=== PATIENT | male | born 1930 | race Caucasian/White ===

== ENCOUNTER 2016-06-08 14:47 | Inpatient (IN) | payer MEDICARE, OTHER ==
[~2016-06-08] VITALS: Ht 180.3 cm; Wt 82.1 kg
[~2016-06-08 14:47] MED LIST: CHOL400T41 PO; COU5 PO; IND10 PO; OMEP20TA86 PO; SYN75 PO; ZOC10 PO; [UNRECOGNIZED DRUG - CODE] PO
[2016-06-08 16:30] VITALS: BP 160/88; PULSE 126; RESP 21; O2SAT 90
[2016-06-08] MEDS ORDERED: VENL75TA3 PO (16:58)
[2016-06-08] MEDS ORDERED: NYST1000 PO (16:58)
[2016-06-08] MEDS ORDERED: BISA10SU61 RC (16:58)
[2016-06-08] MEDS ORDERED: ACID1TAB2 PO (16:58)
[2016-06-08] MEDS ORDERED: FLUT9.9S NS (16:58)
[2016-06-08] MEDS ORDERED: CHOL200025 PO (16:58)
[2016-06-08] MEDS ORDERED: OMEP20CA11 PO (16:58)
[2016-06-08] MEDS ORDERED: RIVA20TA PO (16:58)
[2016-06-08] MEDS ORDERED: SIMV20TA4 PO (16:58)
[2016-06-08] MEDS ORDERED: MULT1CAP33 PO (16:58)
[2016-06-08] MEDS ORDERED: GABA-500 PO (16:58)
[2016-06-08] MEDS ORDERED: ALBU0.63 INHALATION ×2 (16:58→17:59)
[2016-06-08] MEDS ORDERED: DONE5TAB30 PO (16:58)
[2016-06-08] MEDS ORDERED: TIOT18CA3 INHALATION (16:58)
[2016-06-08] MEDS ORDERED: NA P133E23 RC (16:58)
[2016-06-08] MEDS ORDERED: LEVO75TA PO (16:58)
[2016-06-08] MEDS ORDERED: BISA-67 PO (16:58)
[2016-06-08] MEDS ORDERED: MAGN400O4 PO (16:58)
[2016-06-08] MEDS ORDERED: CETI10CA PO (17:10)
[2016-06-08] MEDS ORDERED: KEN25CR EXT (17:10)
[2016-06-08] MEDS ORDERED: ACET325T51 PO (17:10)
[2016-06-08] MEDS ORDERED: PRIM50TA PO (17:10)
[2016-06-08] MEDS ORDERED: TETR15DR99 BOTH_EYES (17:10)
[2016-06-08] MEDS ORDERED: 0.9% Sodium Chloride 1,000 ML IV SCH (17:39)
[2016-06-08] MEDS ORDERED: Alum-Mag Hydrox-Simeth 30 mL Suspension PO PRN (17:40)
[2016-06-08] MEDS ORDERED: Polyethylene Glycol (PEG) 17 Gm Powder PO PRN (17:40)
[2016-06-08] MEDS ORDERED: Ondansetron 2 mg/mL 2 mL Inj IVPUSH PRN (17:40)
[2016-06-08] MEDS ORDERED: Sodium Biphos-Phos 133 mL Enema RECTAL PRN (17:55)
[2016-06-08] MEDS ORDERED: Magnesium Hydroxide 355 mL Oral Suspension PO PRN (17:55)
[2016-06-08] MEDS ORDERED: Nystatin 100,000 Unit/mL 59 mL Suspension PO PRN (17:55)
--- NOTE | 2016-06-08 18:00 | PCM.HPMED ---
Subjective Date of Service Jun 08, 2016 Primary Provider: Admitting Physician: Sasha Horton MD Primary Care Physician: Angel Stock MD Attending Physician: Sasha Horton MD Chief Complaint: left hip pain History of Present Illness: Daughter Reports he was hospitalized in March with severe aspiration pneumonia and Fever, he required ICU care and she said they had to give him up to 15 liters of oxygen. Per notes he also had mario esophagitis. Since then he has been at [facility]. It is reported that he was sitting on the bed when he dropped his pen and when he reached to slat pickler he fell landing on his left hip. The staff found him lying on the floor on left side complaining of left hip pain. He was seen at [facility] emergency department and transferred here for admission. Upon arrival he was noted to be febrile and is requiring 6 L of oxygen. Daughter notes he has still continued to have a chronic cough at the rehabilitation facility, he was treated with doxycycline on May 16, and apparently also Tamiflu. Daughter thinks his influenza test was positive but rehab notes say he was treated in spite of a negative test. Review of Systems: He has dementia and is not able to provide a review of symptoms. His daughter Is not aware of any recent new symptoms. Notes from the rehabilitation facility note recent weight loss, decreased appetite, drip, cough, and weakness. He did receive a course of doxycycline starting May 16 for his cough. Apparently he was tested for influenza was negative but they treated him with Tamiflu in spite of this. Allergies Coded Allergies: Sulfa (Sulfonamide Antibiotics) (Verified Allergy, Severe, 06/08/16) No Known Allergies (Verified Allergy, Unknown, 06/08/16) Home Medications Paperwork from the rehabilitation facility was with the admit nurse who was entering them in our computer. Please see med reconciliation for the current list. Daughter states he had been on propranolol in the past for his tremor but is not sure if he is still on this. PMH According to the daughter and his 2012 admission here has medical history includes: Chronic atrial fibrillation on chronic anticoagulation which was changed from warfarin to xeralto 2 months ago Essential tremor Obstructive sleep apnea for which he had been using CPAP but they are not using at rehabilitation COPD/emphysema Coronary artery disease with angioplasty in 2007 showing moderate disease of the LAD. Echo in 2011 showed ejection fraction of the 55-60% Dementia Luz's esophagitis Prostate cancer Hyperlipidemia Restless leg syndrome Hypothyroidism Additional diagnoses noted on paperwork from rehabilitation facility: depression Dysphagia (colt says he was changed back to a regular diet with thin liquids 3 weeks ago) polyneuropathy weakness gait abnormality Surgical History Left femoral fracture with a bone graft when he was hit by a log in 1957 History of pneumothorax Prostatectomy Testicular surgery Cataract surgery Family History Not obtainable Social History Hx Alcohol Use: Yes (used to drink but none since March) Hx Substance Use: No Hx Tobacco Use: Yes (CHEWING TOBACCO) Smoking Status: Former Smoker (in 1984) [facility]ement[facility] Additional Information , has 3 daughters and 2 of them are here today, but other in [place]. POL states CPR but he currently does not have capacity to make decision regarding this and both his daughter's decided today he should be DNAR. One is his daughter Jahaira who is his HCPOA Exam Vital Signs Vital Sign - Last Date Time Temp Pulse Resp B/P Pulse Ox O2 Delivery O2 Flow Rate FiO2 06/08/16 17:24 Supplement Oxygen 06/08/16 16:30 38.4 126 21 160/88 90 2.00 Exam General: Alert, no acute distress. Not oriented to place and doesn't recognize this as the hospital. Doesn't know the year or the president. When I ask him about CPR he makes comments that are totally unrelated to the topic. HEENT: Unremarkable Neck no JVD, carotids 2+ Heart: Irregularly irregular with a rate of approximately 120 Lungs: Somewhat decreased breath sounds left base Abdomen: Soft, non-tender Extremities: No pedal edema. Pedal pulses 2+. Does not move left leg because he does remember that it is "injured". Able to raise the right leg off the bed Assessment & Plan # left femoral neck fracture - will need surgery when effect of Xarelto is felt to have worn off and when fever and respiratory status is stable # fever, most likely is due to recurrent aspiration pneumonia -Obtain chest x-ray - Obtain blood cultures and urinalysis - Begin Unasyn # hypoxia - Treat probable pneumonia as noted above - Oxygen therapy as needed - Resume CPAP at night which he had been on in the recent past - Continue Spiriva - As needed albuterol nebulizer # Dysphagia - go back on dysphagia diet with thickened liquids - speech therapy evaluation # Chronic atrial fibrillation, now with some increased ventricular response - Most likely due to fever - We will give IV fluid and if does not improve consider medication for rate control - Since Xarelto is being held for hip surgery will be a full dose of therapy, dose prior to surgery once determined when that will be # INR of 1.9 at [facility] ED, will repeat, as noted above is now on Xarelto instead of warfarin and it is being held. Pain Evaluation: Adequate Pain Control VTE Prophylaxis: Other (has been on Xarelto which will be held for surgery so we will change to full dose Lovenox) VTE Mechanical Devices: Intermittant Pneumatic CD Resuscitation Status: DNR/DNI:Do Not Resuscitate/Intubate Sasha Horton MD Jun 08, 2016 18:00
--- NOTE | 2016-06-08 18:07 | NUR ---
Direct admit Patient report was called by [facility] nurse. Patient was transported to [facility] via BLS. Patient transferred to bed by 3 person transfer. Patient is non weight bearing. Patient is alert and confused. Patient family in room at time of admit. Patient was on room air at time of arrival but was 66% on RA at arrival. Patient has been placed on 6L supplemental oxygen via oxy-mask with saturations at 87-90% and sometimes dropping into to low 80's. Patient was unable to be oriented to room, but family was oriented. Patient denied pain.
--- NOTE | 2016-06-08 18:15 | PCM.CONORT ---
Subjective Date of Surgery: Jun 08, 2016 Surgeon Admitting Provider:Sasha Horton MD Attending Provider:Sasha Horton MD Primary Care Physician:Angel Stock MD Orthopedic surgeon: Moshe Jett M.D. 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 He has a significant past medical history which includes atrial fibrillation with the Xarelto anticoagulation, dementia, recent pneumonia and left femoral shaft fracture in the 1949s treated surgically and with prolonged body casting. The patient has a pre-existing 3 inch left shorter than right limb length discrepancy and mild valgus malunion deformity following his left femoral fracture, but was otherwise a community ambulator who did not normally use walking aids other than a left shoe lift. The patient was hospitalized at [facility] in March for pneumonia. He has been recovering and rehabilitating from that illness and generalized deconditioning at an [facility], [facility]. The patient is still unsteady with regards to mobilization and has been using a walker. The patient was getting out of his bed this morning and reaching for a dropped pen, 06/08/2016, when he unfortunately lost his balance and fell heavily onto his left side. The patient experienced pain in his left hip and groin region as a result of the fall and was unable to weight-bear through his left lower extremity. The patient was brought to [facility] emergency room where he was assessed and x-rays of his left hip and femur were obtained. Those x-rays confirmed a minimally displaced left femoral neck fracture and an old, healed left distal femoral shaft malunion. The patient was transferred to [facility] for definitive care as it was explained that there were no available beds at [facility]. The patient was found to have a significantly low oxygen saturation and had an elevated temperature upon arrival to [facility]. The patient's INR, which was obtained at [facility], was reported as 2.49. The patient is not reported to be taking Coumadin according to half-way facility records. The patient has been admitted to the Hospitalist Service and an orthopedic surgical consultation has been requested for assessment and management of the patient's left hip femoral neck fracture. Allergy Allergies: Coded Allergies: Sulfa (Sulfonamide Antibiotics) (Verified Allergy, Severe, 06/08/16) No Known Allergies (Verified Allergy, Unknown, 06/08/16) Medications Blood Thinners: Coumadin Last Dose Blood Thinner: Jun 07, 2016 Hypertension Medication: No Home Meds Incl Beta Blockers: No Acetaminophen (Acetaminophen) 325 Mg Tablet 1-2 EACH PO Q4H PRN PRN For Pain ( Reported) Acidophilus/Pectin, [place] (Acidophilus Caplet) 1 Each Tablet 1 EACH PO BID PRN PRN when on antibiotics (Reported) Albuterol Neb Soln (Albuterol Neb Soln) 0.63 Mg/3 Ml Vial.neb 0.63 MG INHALATION QID PRN PRN For Cough (Reported) Bisacodyl (Dulcolax) 5 Mg Tablet.dr 5-10 MG PO DAILY PRN PRN For Constipation ( Reported) PER BOWEL PROTOCOL Bisacodyl (Dulcolax Rectal) 10 Mg Supp.rect 10 MG RC DAILY PRN PRN For Constipation (Reported) PER BOWEL PROTOCOL Cetirizine HCl (Zyrtec) 10 Mg Capsule 10 MG PO DAILY (Reported) Cholecalciferol (Vitamin D3) (Vitamin D3) 2,000 Unit Tablet 2,000 UNIT PO DAILY (Reported) Donepezil (Donepezil) 5 Mg Tablet 5 MG PO DAILY (Reported) Fluticasone Propionate (Flonase Allergy Relief) 50 Mcg/Actuation Ada.susp 2 SPRAYS NS DAILY (Reported) Gabapentin (Gabapentin) 100 Mg Capsule 100 MG PO TID (Reported) Levothyroxine Sodium (Levo-T) 75 Mcg Tablet 75 MG PO DAILY (Reported) Magnesium Hydroxide (Milk of Magnesia) 400 Mg/5 Ml Oral.susp 30 ML PO DAILY PRN PRN For Constipation (Reported) PER BOWEL PROTOCOL Multivitamin (Multivitamins) 1 Each Capsule 1 EACH PO DAILY (Reported) Na Phos,M-B/Na Phos,Di-Ba (Fleet Enema) 133 Ml Enema 133 ML RC DAILY PRN PRN For Constipation (Reported) PER BOWEL PROTOCOL Nystatin (Nystatin) 100,000 Unit/1 Ml Oral.susp 5 ML PO TID PRN PRN oral thrush (Reported) Omeprazole (Omeprazole) 20 Mg Capsule.dr 20 MG PO DAILY (Reported) Primidone (Primidone) 50 Mg Tablet 75 MG PO DAILY (Reported) Last Taken: UNKNOWN on Unknown Date & Time Rivaroxaban (Xarelto) 20 Mg Tablet 20 MG PO DAILY (Reported) Simvastatin (Simvastatin) 20 Mg Tablet 20 MG PO DAILY (Reported) Tetrahyd/Zn/Peg 400/Hyprom/Gly (Visine Totality Eye Drops) 15 Ml Drops 2 DROP BOTH_EYES QID PRN PRN For Eye Irritation (Reported) Tiotropium [employer] (Spiriva) 18 Mcg Cap.w.dev 1 CAPSULE INHALATION DAILY ( Reported) Triamcinolone Acet (Triamcinolone Acetonide Cream) 1 Applic/0.25 Gm Cr 1 APPLIC EXT TID PRN PRN rash (Reported) apply to back prn Venlafaxine (Venlafaxine) 75 Mg Tablet 75 MG PO DAILY (Reported) Discontinued Medications CHOLECALCIFEROL-Expunged Drug, Do Not Renew! (VITAMIN D-Expunged Drug, Do Not Renew!) 400 Unit Tablet 2,000 UNIT PO DAILY (Reported) Levothyroxine-Expunged Drug, Do Not Renew! (Synthroid-Expunged Drug, Do Not Renew!) 75 Mcg Tablet 0.075 MG PO DAILY (Reported) 0.075 MG = 75 MCG Omeprazole-Expunged Drug, Do Not Renew! (Omeprazole-Expunged Drug, Do Not Renew! ) 20 Mg Tablet.dr 20 MG PO DAILY (Reported) Primidone-Expunged Drug, Do Not Renew! (Mysoline-Expunged Drug, Do Not Renew!) 50 Mg Tab 50 MG PO TID (Reported) Propranolol-Expunged Drug, Do Not Renew! (Propranolol-Expunged Drug, Do Not Renew!) 10 Mg Tab 10 MG PO TID (Reported) Simvastatin-Expunged Drug, Choose New Med! (Simvastatin-Expunged Drug, Choose New Med!) 10 Mg Tablet 20 MG PO HS (Reported) Warfarin Inactive Drug Do Not Use (Coumadin Inactive Drug Do Not Use) 5 Mg Tablet 7.5 MG PO DAILY (Reported) History History of ENT Problems?: Yes HEENT History: Positive for:: Dysphagia Hearing Problem Denies:: Abnormal Airway Cataracts Difficult Intubation Glaucoma Sinus Problem Denture Type: Full- Upper Full- Lower Hx of Heart Problems?: Yes Cardiovascular History: Positive for:: Hypertension Irregular Heartbeat (a-fib) Denies:: Cardiac Surgery Chest Pain Congestive Heart Failure Edema Heart Murmur Pacemaker Thrombophlebitis Hx of Respiratory Problem?: Yes Respiratory History: Positive for:: COPD Dyspnea Emphysema Pneumonia (intensive care hospitalization at [facility] March 2016) Denies:: Asthma Chest Surgery Hemoptysis Tuberculosis Hx Neurologic Problems?: Yes Neurological History: Positive for:: Dementia Headaches Denies:: Alzheimer's Disease CVA Dizziness Parkinson's Disease Seizures Hx of GI Problems?: Yes Gastrointestinal History: Positive for:: Gastroesphageal Reflux Heartburn Rectal Bleeding Denies:: Diverticulitis Gastrointestinal Bleeding Hepatitis Hiatal Hernia Hx of Problems?: Yes Genitourinary History: Denies:: HX of Hemodialysis Kidney Stones Urinary Tract Infection HX of Peritoneal Dialysis: No Male Hx: Positive for:: Prostate Problems (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) Denies:: Scrotal Mass Testicular Surgery Hx Musculoskeletal Problems?: Yes Musculoskeletal History: Positive for:: Back Injury Musculoskeletal Trauma (femoral shaft fracture open reduction and casting) Denies:: Joint Replacement Hx of Psycho/Social Problems?: Yes Psycho Social History: Positive for:: Anxiety Denies:: Bipolar Disorder Hx Depression Suicide Attempt Hx Surgeries?: Yes (left femur open reduction , laparoscopic cholecystectomy) Hx Any Other Health Problems?: Yes Other History: Positive for:: Cancer Hospitalization Thyroid Disease Denies:: Endocrine Disease History Blood Transfusions: Positive for:: Accept Blood Products? Denies:: Blood Transfuse Reaction Blood Transfusions Hx Diabetes: No Hx Alcohol Use: Yes (used to drink)Hx Substance Use: NoHave You Smoked inLast 12 mo: No Objective Exam Objective Imaging X-ray AP pelvis and left hip lateral [facility] 06/08/2016: Minimally displaced, mid cervical femoral neck fracture. Mild to moderate pre-existing degenerative changes. Postsurgical changes and clips consistent with prostate surgery. Generalized osteopenia. X-ray left femur multiple views [facility] 06/08/2016: Healed distal one third femoral shaft fracture with mild valgus deformity malunion. Generalized osteopenia. Vital Signs & I/O Vital Sign- Last 8 Hours Date Time Temp Pulse Resp B/P Pulse Ox O2 Delivery O2 Flow Rate FiO2 06/08/16 17:24 Supplement Oxygen 06/08/16 16:30 38.4 126 21 160/88 90 Nasal Cannula 2.00 Review of Systems: Constitutional: Negative, except as otherwise mentioned in the history above. Ophthalmologic: Negative, except as otherwise mentioned in the history above. Cardiovascular: Negative, except as otherwise mentioned in the history above. Respiratory: Negative, except as otherwise mentioned in the history above. Gastrointestinal: Negative, except as otherwise mentioned in the history above. Genitourinary: Negative, except as otherwise mentioned in the history above. Musculoskeletal: Negative, except as otherwise mentioned in the history above. Neurological: Negative, except as otherwise mentioned in the history above. Psychiatric: Negative, except as otherwise mentioned in the history above. Hematologic/Lymphatic: Negative, except as otherwise mentioned in the history above. Allergic/Immunologic: Negative, except as otherwise mentioned in the history above. H&P Surgical Exam Exam General: Alert, Cooperative, No Acute Distress (The patient is requiring supplemental oxygen and is on a face mask re-breather) Musculoskeletal: Left lower extremity: 3 inch left shorter than right limb length discrepancy but no significant external rotation deformity. There is a well-healed longitudinal anterolateral mid to distal thigh incision scar which is well- healed nontender. Skin about the hip is intact without abrasion, ecchymosis or significant swelling. There is tenderness in the left groin region to gentle attempt at left hip motion. There is no tenderness to palpation of the left knee or obvious effusion. There is bossing of the knee consistent with degenerative changes. The lower limb is otherwise remarkable for generalized musculature atrophy. Neurovascular exam: Superficial peroneal, deep peroneal and saphenous sensation grossly intact to light touch. Ankle dorsiflexion, extensor hallucis and ankle plantarflexion 3/5 motor power. Dorsalis pedis pulse is palpable. H&P Preop Plan Impression Left hip minimally displaced femoral neck fracture in elderly, demented patient with multiple chronic and acute medical comorbidities currently anticoagulated on Xarelto following ground-level fall at half-way facility 06/08/2016. Problems: Risks & Benefits * We have reviewed the risks and benefits as well as the alternatives to surgery. All questions were answered to the patient's satisfaction and a counseling note to that effect. The patient has provided informed consent. * I have counseled the patient regarding the deleterious effects that smoking during the perioperative period can have upon wound healing, infection rates, and the overall rate of complications. Plan I have reviewed the diagnosis, x-ray findings, natural history and treatment options with the patient, his daughters who act as his power of real estate associate attorney and the patient's attending physician Sasha Horton M.D. I have recommended that we proceed with plans for left fracture in situ cannulated pinning as soon as the patient's medical condition can be optimized and his anticoagulated status to be suitably reversed. I appreciate and the rest of the Hospitalist team's assistance in this regard. We reviewed the potential risks and benefits of surgery including, but not limited to, discussions involving infection, bleeding, neurovascular injury, stiffness, weakness, hypersensitivity and reflex sympathetic dystrophy, fracture malunion, fracture nonunion, femoral head avascular necrosis, hardware pain, hardware failure and loss of reduction, posttraumatic arthritis and need for further reconstructive surgery including conversion to total hip arthroplasty. We also discussed general medical complications including, but not limited to, stroke, myocardial infarction, cardiorespiratory arrest, generalized infection or sepsis, deep vein thrombosis and pulmonary embolism and exacerbation of pre-existing medical comorbidities. copies to: Angel Stock MD; Moshe Jett MD, Michael G.E MD Jun 08, 2016 18:15
[2016-06-08 18:21] LABS: BASOPHILS % (AUTO) 0.1 % (0-3); EOSINOPHILS % (AUTO) 0 % (0-5); MONOCYTES % (AUTO) 3.5 % (4-12); Mean Corpuscular Hemoglobin 31.1 pg (27.0-35.0); Mean Corpuscular Volume 92.6 fL (81-100); NEUTROPHILS % (AUTO) 93.7 % (40-74); Platelet Count 352 bil/L (150-400)
[2016-06-08 18:22] VITALS: PULSE 117
[2016-06-08] MEDS: HYDROcodone-APAP 5-325 mg Tablet PO PRN (18:31)
[2016-06-08 18:36] LABS: Magnesium 1.4 mg/dL (1.6-2.6)
[2016-06-08 18:41] LABS: INR 1.2 ratio
[2016-06-08] MEDS ORDERED: Tetrahydrozoline 0.05% 15 mL Ophthalmic Solution BOTH_EYES PRN (18:50)
--- NOTE | 2016-06-08 19:10 | DRSVH ---
PROCEDURE: X-RAY CHEST ONE VIEW, PORTABLE ([id number]) INDICATIONS: fever, history of aspiration pneumonia TECHNIQUE: One view of the chest was acquired. COMPARISON: [facility], , CHEST 1 VIEW, 04/07/2016, 15:12. FINDINGS: Surgical changes and devices: None. Lungs and pleura: Lungs are hyperinflated. No pneumothorax is seen. No pleural effusion is seen. No i ll-defined areas of scattered increased markings in the periphery of the left lung and possibly infer iorly into right lung. These could be small areas of recurrent pneumonia. Mediastinum: Mediastinal contours appear normal. Heart size is normal. Bones and chest wall: No suspicious bony lesions. Overlying soft tissues appear unremarkable. IMPRESSION: Compared to the chest x-ray in March of 2016 is been significant improvement in the appearance of the infiltrates. Currently there ill-defined patchy areas of density in the periphery of the left lung and possibly ri ght base suggestive of small infiltrates. Dictated by: Cuco Dietrich M.D. on 06/08/2016 at 19:06 Approved by: Cuco Dietrich M.D. on 06/08/2016 at 19:08
[2016-06-08 19:40] VITALS: BP 123/67; PULSE 85; RESP 19; O2SAT 94
[2016-06-08] MEDS ORDERED: Albuterol 2.5 mg/3 mL Inhalation Solution NEB PRN (20:00)
[2016-06-08] MEDS: Ampicillin-Sulbactam Inj 3,000 MG in 0.9% Sodium Chloride 100 ML IV SCH (21:35)
[2016-06-08] MEDS ORDERED: Magnesium Sulf 2 Gm/50mL Water 2 GM in IV Premix 1 EACH IV ONE (22:20)
[2016-06-08] MEDS: 0.9% Sodium Chloride 1,000 ML IV SCH (22:25)
[2016-06-08 23:35] VITALS: PULSE 91
[2016-06-09] VITALS (9 sets, daily range): BP systolic 101–121; BP diastolic 48–71; PULSE 71–101; RESP 18–20; O2SAT 92–99
--- NOTE | 2016-06-09 01:37 | NUR ---
Nurse Swallow Screen Charge nurse preformed swallow screen at beginning of shift. Charge nurse states patient was able to tolerate honey thick liquids, and pureed foods. Patient was given evening medications in applesauce without any coughing, choking, or signs of aspiration. Will continue to monitor, and continue Q1 hour checks.
[2016-06-09] MEDS: Ampicillin-Sulbactam Inj 3,000 MG in 0.9% Sodium Chloride 100 ML IV SCH ×4 (03:51→20:19)
[2016-06-09 04:01] LABS: APPEARANCE,URINE HAZY (CLEAR,HAZY); COLOR,URINE DARK YELLOW (YELLOW); OCCULT BLOOD,URINE NEGATIVE (NEGATIVE); UROBILINOGEN,URINE NORMAL (NORMAL)
[2016-06-09] MEDS ORDERED: Pantoprazole 20 mg ER24 Tablet PO SCH (06:00)
[2016-06-09] MEDS: 0.9% Sodium Chloride 1,000 ML IV SCH ×2 (08:25→17:03)
[2016-06-09 08:47] LABS: BASOPHILS % (AUTO) 0.1 % (0-3); EOSINOPHILS % (AUTO) 3.2 % (0-5); MONOCYTES % (AUTO) 5.1 % (4-12); Mean Corpuscular Hemoglobin 30.4 pg (27.0-35.0); NEUTROPHILS % (AUTO) 82.7 % (40-74); Platelet Count 301 bil/L (150-400)
[2016-06-09 08:56] LABS: Magnesium 2.2 mg/dL (1.6-2.6); Phosphorus 3.9 mg/dL (2.5-4.9)
--- NOTE | 2016-06-09 09:35 | PCM.PNORTH ---
Subjective Date of Service: Jun 09, 2016 Visit Information: Reason for Visit Left Femoral Neck Fracture Surgery/Surgery Date Post-Op Day # Date of Admission: Jun 08, 2016 at 15:59 Hospital Day # Subjective Found patient supine in bed and asleep and easily awakened. Patient complains of mild discomfort at the left hip. Discussed with patient that his condition at this point other than his hip would likely keep him from being taken to the OR today and that his hospitalist physician will work on his medical issues and advise orthopedics when patient is stable for the OR. Objective Exam Objective Orientation: Alert and pleasant and interactive. Received information of some mild dementia from nursing staff. Patient thinks he has been in this hospital for 5 years and describes things that do not seem to correlate with his current situation. Dressing: None Wound: None Compartments: Calf and thigh are soft and nontender Mobility/sensation: Toe wiggle and sensation are intact at left lower extremity distally JASVIR hose: None Soto: Presently working Gait: Strict nonweightbearing at this time. Vital Signs and I/O Vital Sign - Last Date Time Temp Pulse Resp B/P Pulse Ox O2 Delivery O2 Flow Rate FiO2 06/09/16 09:00 83 06/09/16 08:06 20 95 OxyMask 4.00 06/09/16 05:15 36.5 118/69 Intake and Output 06/08/16 06/08/16 06/09/16 Cumulative From/Thru 15:00 23:00 07:00 06/08/16 17:24 - 06/09/16 05:13 Intake Total 0 ml 960 ml 960 ml Output Total 365 ml 365 ml Balance 0 ml 595 ml 595 ml Intake Oral 0 ml 0 ml 0 ml IV Total 960 ml 960 ml Output Urine Total 365 ml 365 ml # Voids 1 1 Lab & Micro Results Laboratory Tests Test 06/08/16 18:00 06/09/16 03:49 06/09/16 05:59 White Blood Count 22.7th/mm3 (3.8-10.1) 14.2th/mm3 (3.8-10.1) Red Blood Count 4.31mil/mm3 (4.40-5.80) 3.88mil/mm3 (4.40-5.80) Hemoglobin 13.4g/dL (13.8-17.2) 11.8g/dL (13.8-17.2) Hematocrit 39.9% (41.0-50.0) 35.3% (41.0-50.0) Mean Corpuscular Volume 92.6fL (81-100) 91.0fL (81-100) Mean Corpuscular Hemoglobin 31.1pg (27.0-35.0) 30.4pg (27.0-35.0) Mean Corpuscular Hemoglobin Concent 33.6% (32.0-37.0) 33.4% (32.0-37.0) Red Cell Distribution Width 14.0% (12.3-15.4) 14.5% (12.3-15.4) Platelet Count 352bil/L (150-400) 301bil/L (150-400) Neutrophils (%) (Auto) 93.7% (40-74) 82.7% (40-74) Lymphocytes (%) (Auto) 2.3% (14-46) 8.5% (14-46) Monocytes (%) (Auto) 3.5% (4-12) 5.1% (4-12) Eosinophils (%) (Auto) 0% (0-5) 3.2% (0-5) Basophils (%) (Auto) 0.1% (0-3) 0.1% (0-3) Prothrombin Time 12.9sec (8.1-12.5) Prothromb Time International Ratio 1.20ratio Sodium Level 133mEq/L (134-144) 135mEq/L (134-144) Potassium Level 4.5mEq/L (3.5-5.2) 5.0mEq/L (3.5-5.2) Chloride Level 93mEq/L (97-108) 97mEq/L (97-108) Carbon Dioxide Level 25mmol/L (18-29) 26mmol/L (18-29) Blood Urea Nitrogen 14mg/dL (8-27) 15mg/dL (8-27) Creatinine 0.88mg/dL (0.76-1.27) 0.85mg/dL (0.76-1.27) Estimat Glomerular Filtration Rate 87mL/min (>59) 90mL/min (>59) Glucose Level 160mg/dL (60-99) 119mg/dL (60-99) Calcium Level 9.3mg/dL (8.5-10.1) 9.1mg/dL (8.5-10.1) Magnesium Level 1.4mg/dL (1.6-2.6) 2.2mg/dL (1.6-2.6) Total Bilirubin 0.5mg/dL (0.0-1.2) 0.3mg/dL (0.0-1.2) Aspartate Amino Transf (AST/SGOT) 20U/L (0-50) 24U/L (0-50) Alanine Aminotransferase (ALT/SGPT) 19U/L (0-44) 17U/L (0-44) Alkaline Phosphatase 120U/L (25-160) 103U/L (25-160) Total Protein 7.4g/dL (6.4-8.4) 6.5g/dL (6.4-8.4) Albumin 3.3g/dL (3.4-5.0) 2.8g/dL (3.4-5.0) Hold Khanna Top Tube Received (Received) Urine Color Dark yellow (YELLOW) Urine Appearance Hazy (CLEAR,HAZY) Urine pH 5.0 (5.0-8.0) Urine Specific Braxton 1.030 (1.003-1.035) Urine Protein Negativemg/dL (NEG,TRACE) Urine Glucose (UA) Negativemg/dL (NEGATIVE) Urine Ketones Negativemg/dL (NEGATIVE) Urine Occult Blood Negative (NEGATIVE) Urine Nitrite Negative (NEGATIVE) Urine Bilirubin Negative (NEGATIVE) Urine Urobilinogen Normalmg/dL (NORMAL) Urine Leukocyte Esterase Negative (NEGATIVE) Urine RBC 0-2/hpf (0-2) Urine WBC 0-5/hpf (0-5) Urine Epithelial Cells Occasional/hpf (NONE-MOD) Urine Crystals None seen (NONE SEEN) Urine Bacteria Few/hpf (NONE-FEW) Urine Hyaline Casts Occasional/lpf (NONE) Urine Granular Casts None seen (NONE SEEN) Urine Waxy Casts None seen (NONE SEEN) Urine Red Blood Cell Casts None seen (NONE SEEN) Urine White Blood Cell Casts None seen (NONE SEEN) Urine Mucus Present (None Seen) Urine Trichomonas None seen (NONE SEEN) Urine Yeast None (NONE SEEN) Urinalysis Comment None Urine Culture Reflexed Not indicated Phosphorus Level 3.9mg/dL (2.5-4.9) Microbiology 06/08/16 Blood Culture, Received Pending Result Diagram: 06/09/16 0559 06/09/16 0559 General Appearance: Alert, Cooperative Extremities: No Compartment Syndrom Noted, Thigh & Calf Soft/Nontender Postop Sensory Motor: Distal Motor Intact, Movement in Toes, Distal Sensation Intact Catheters: Urethral 2 Way Soto Assessment & Plan Impression Patient is a very pleasant 86-year-old male with a recent history of pneumonia who apparently is still having symptoms. He is apparently has some level of dementia but is very talkative and alert and pleasant and does respond well to questions and does follow commands. He has injured his left hip and does need surgical fixation of this injury which will be delayed secondary to overriding medical issues. Problems: Plan Postadmit day # 1 from a ground-level fall during which he sustained a left hip fracture. Patient has been consult by Dr. Moshe Jett and placement of left cannulated screw fixation has been suggested and is awaiting medical clearance. Weight bearing status: Strict nonweightbearing at this time. Mobility aid: Immobilization: Precautions: Please try to keep the left hip as immobile as possible and if patient is turned in use pillow between the legs to maintain neutral alignment at the left hip. Physical therapy: No physical therapy needed at this time. Pain control: Pain control per hospitalist service. DVT prophylaxis: DVT prophylaxis per hospitalist service. Soto: In place and working. Abduction wedge: Absent JASVIR hose: Absent Nursing communication: Nursing please try to maintain left hip in neutral position and if bed mobility is required please use pillow between the legs to maintain neutral position of hip and take care to move legs as a unit in line with the torso. Plan: Anticipate taking patient to the OR as soon as practical after medical clearance from hospitalist service. Orthopedics thanks hospitalist service for their help in the medical management of this patient. Discharge plan: Patient will likely be discharged to senior living facility postop day 3 after left hip surgery. This is assuming medical issues do not override and dictate an alternate plan. VTE Prophylaxis: Other (Lovenox 80 mg daily as ordered by hospitalist service.) Resuscitation Status: DNR/DNI:Do Not Resuscitate/Intubate Rafael KulkarniC Jun 09, 2016 09:15
[2016-06-09] MEDS: HYDROcodone-APAP 5-325 mg Tablet PO PRN (10:01)
[2016-06-09] MEDS: Venlafaxine XR 75 mg ER24 Capsule PO SCH (10:03)
[2016-06-09] MEDS: Tiotropium 18mcg/Cap 5 Capsule Inhaler Kit INHALATION SCH (10:07)
[2016-06-09] MEDS: Fluticasone 0.05% 15 Spray/2 Gm 16 Gm Nasal Spray NASAL SCH (10:07)
[2016-06-09 10:35] LABS: INR 1.18 ratio
[2016-06-09] MEDS ORDERED: GUAI600T86 PO (12:22)
--- NOTE | 2016-06-09 14:14 | NUR ---
Evaluation completed. Please go to "Notes" then click on "Assessments and Notes" (bottom left corner of screen). Then select appropriate discipline tab on top of screen. Rec a modified barium swallow study be completed JULIAN (Saturday is soonest possible).
--- NOTE | 2016-06-09 14:52 | NUR ---
Social Work- Initial Assessment Attempt Social Work attempted to contact GLENROY Casanova, to complete initial assessment. Left voicemail requesting return call. UDAY Renee
--- NOTE | 2016-06-09 16:44 | NUR ---
Pain / O2 No c/o pain unles pt is being moved to be placed on bedpan or roll to turn. Pain seems controlled at rest. For pain prevention 1Tab Vicodin seems to work well. Supplemental oxygen NC @ 3L 92%. Weaning pt slowly off of oxygen. Care continues
--- NOTE | 2016-06-09 17:29 | PCM.PNMED ---
Subjective Date of Service Jun 09, 2016 Subjective Patient is feeling better. However, he complains of pain in his left hip. He is breathing okay with an oxygen mask on. He has no other new complaints. Exam Vital Signs Vital Sign - Last Date Time Temp Pulse Resp B/P Pulse Ox O2 Delivery O2 Flow Rate FiO2 06/09/16 16:00 Supplement Oxygen 06/09/16 15:23 36.9 99 19 101/48 92 4.00 Intake and Output 06/08/16 06/08/16 06/09/16 Cumulative From/Thru 15:00 23:00 07:00 06/08/16 17:24 - 06/09/16 05:13 Intake Total 0 ml 960 ml 960 ml Output Total 365 ml 365 ml Balance 0 ml 595 ml 595 ml Intake Oral 0 ml 0 ml 0 ml IV Total 960 ml 960 ml Output Urine Total 365 ml 365 ml # Voids 1 1 Exam General: Patient is in no apparent distress on oxygen mask. HEENT: Head is atraumatic and normocephalic. Patient has normal male pattern baldness. Eyes: Pupils are equally round and reactive to light and accommodation. Extraocular muscles are intact. Sclera are white, anicteric. Subconjunctival mucosa is pink. Ears and nose are unremarkable. Oropharynx: There is no mucosal lesions, there is no thrush, there is no pharyngitis. Oral mucosa slightly dry. Neck: Is supple, there are no nodes, or masses or tenderness. Chest: There are coarse breath sounds and few scattered rales. Otherwise fairly clear. Heart: Rate, rhythm is regular. There is no murmur, rub or gallop. Abdomen: Good bowel sounds are present. Abdomen is soft, nontender, no organomegaly or masses were appreciated. Extremities: Are well perfused. The left lower extremities roughly 2-3 inches shorter than the right lower extremity. There is no edema, there is no cellulitis, no rash. Range of motion of left hip was not tested. Neurologic: There are no focal neurological deficits. Cranial nerves II through XII are intact. There are no sensory or motor deficits. Psychiatric: Patients mood is calm and he shows no sign of agitation. Genital: Deferred Rectal: Deferred Lab and Diagnostics Result Diagram: 06/09/16 0559 06/09/1659 Microbiology Blood cultures are pending X-Rays, CTs and MRIs PROCEDURE: X-RAY CHEST ONE VIEW, PORTABLE ([id number]) INDICATIONS: fever, history of aspiration pneumonia TECHNIQUE: One view of the chest was acquired. COMPARISON: [facility], , CHEST 1 VIEW, 04/07/2016, 15:12. FINDINGS: Surgical changes and devices: None. Lungs and pleura: Lungs are hyperinflated. No pneumothorax is seen. No pleural effusion is seen. No ill-defined areas of scattered increased markings in the periphery of the left lung and possibly inferiorly into right lung. These could be small areas of recurrent pneumonia. Mediastinum: Mediastinal contours appear normal. Heart size is normal. Bones and chest wall: No suspicious bony lesions. Overlying soft tissues appear unremarkable. IMPRESSION: Compared to the chest x-ray in March of 2016 is been significant improvement in the appearance of the infiltrates. Currently there ill-defined patchy areas of density in the periphery of the left lung and possibly right base suggestive of small infiltrates. Assessment & Plan According to Dr. Horton The patient's daughter reported that the patient was hospitalized in March with severe aspiration pneumonia and Fever, he required ICU care and she said they had to give him up to 15 liters of oxygen. Per notes he also had mario esophagitis. Since then he has been at [facility] group home facility. She was doing so well he was soon to graduate and go back to his assisted living facility. 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 The staff found him lying on the floor on left side complaining of left hip pain. He was seen at [facility] emergency department and transferred here for admission. Upon arrival he was noted to be febrile and is requiring 6 L of oxygen. Daughter notes he has still continued to have a chronic cough at the rehabilitation facility, he was treated with doxycycline on May 16, and apparently also Tamiflu. Daughter thinks his influenza test was positive but rehab notes say he was treated in spite of a negative test. # The patient suffered a left femoral neck fracture after a ground-level fall - Patient will need surgery when effect of Xarelto is felt to have worn off and when fever and respiratory status is stable - I discussed case with Dr. Moshe Jett and he believes it will be safe to perform the open reduction internal fixation of the left hip fracture tomorrow morning. - Therefore, will discontinue the subcutaneous Lovenox. # Fever, most likely is due to recurrent aspiration pneumonia -Obtain chest x-ray - Obtain blood cultures and urinalysis - Continue Unasyn - I have consulted speech therapy and they have recommended a modified barium swallow. Therefore will check modified barium swallow on Saturday after his surgery. # Hypoxia - Treat probable pneumonia as noted above - Oxygen therapy as needed - Resume CPAP at night which he had been on in the recent past - Continue Spiriva - As needed albuterol nebulizer # Dysphagia - Go back on dysphagia diet with thickened liquids - Speech therapy evaluation appreciated - Check modified barium swallow # Chronic atrial fibrillation, now with some increased ventricular response - Most likely due to fever - We will give IV fluid and if does not improve consider medication for rate control - Since Xarelto is being held for hip surgery patient was given a full dose of Lovenox therapy. Will discontinue Lovenox as patient is having surgery tomorrow. # INR of 1.9 at [facility] ED and now normal here at the time of this admission (as noted above is now on Xarelto instead of warfarin and it is being held). # Recent thrush treated at [facility]. - As patient has been placed on broad-spectrum IV antibiotics we will restart empiric treatment with Diflucan. - We will change Diflucan from IV to by mouth postoperatively. Disposition: Provided approval from anesthesia patient will undergo open reduction internal fixation of his left hip fracture in a.m. and then will need a few days of hospitalization postoperatively prior to being transferred back to rehabilitation. # Case discussed with patient's daughter and son-in-law and grandson at bedside at length that agree with the above plan. Pain Evaluation: Adequate Pain Control GI Prophylaxis: Proton Pump Inhibitor VTE Prophylaxis: Other (Lovenox 80 mg daily as ordered by hospitalist service. This will be discontinued as patient is having surgery in a.m.) VTE Mechanical Devices: Intermittant Pneumatic CD Resuscitation Status: DNR/DNI:Do Not Resuscitate/Intubate Willi Siddiqui MD Jun 09, 2016 17:29
[2016-06-10] VITALS (15 sets, daily range): BP systolic 115–139; BP diastolic 64–86; PULSE 78–112; RESP 16–25; O2SAT 92–100
[2016-06-10] MEDS: 0.9% Sodium Chloride 1,000 ML IV SCH (01:05)
[2016-06-10] MEDS: Ampicillin-Sulbactam Inj 3,000 MG in 0.9% Sodium Chloride 100 ML IV SCH ×4 (02:27→21:16)
[2016-06-10] MEDS: Lactated Ringer's 1,000 ML IV SCH ×2 (02:48→15:49)
--- NOTE | 2016-06-10 03:34 | NUR ---
Activity Patient is pleasant and has been alert to person, place and time this evening. Complains of 8/10 left hip pain, but denied need for pain medication. After Discussion, pt agreed to take 650mg of tylenol PO. Upon reassessment patient was sleeping and appeared comfortable. 4L O2 via oxymask to maintain sats >92% is being worn, CREW MANAGER applied. IV is running LR @ 75cc/hr per MD orders. Patient has been NPO since midnight. Soto is draining pale urine to gravity. Q2 turns have been encouraged, but pt has had difficulty tolerating activity. Heels are being floated, and SCDs are being worn. Will continue to monitor, and continue Q 1 hour checks.
--- NOTE | 2016-06-10 04:06 | NUR ---
7 Beats of V-Tach Tele notified this nurse at 0400 that patient had experienced 7 beats of V-tach. Patient is currently sleeping and appears comfortable. MD notified. No new orders at this time. Will continue to monitor.
[2016-06-10 06:18] LABS: BASOPHILS % (AUTO) 0.2 % (0-3); EOSINOPHILS % (AUTO) 4.4 % (0-5); INR 1.17 ratio; Mean Corpuscular Hemoglobin 30.3 pg (27.0-35.0); Mean Corpuscular Volume 94.6 fL (81-100); NEUTROPHILS % (AUTO) 78.7 % (40-74); Platelet Count 259 bil/L (150-400)
[2016-06-10 06:27] LABS: Magnesium 1.7 mg/dL (1.6-2.6); Phosphorus 2.4 mg/dL (2.5-4.9)
[2016-06-10] MEDS: Pantoprazole 4 mg/mL 10 mL Inj IVPUSH SCH (08:01)
[2016-06-10] MEDS: Tiotropium 18mcg/Cap 5 Capsule Inhaler Kit INHALATION SCH (08:01)
[2016-06-10] MEDS: Fluticasone 0.05% 15 Spray/2 Gm 16 Gm Nasal Spray NASAL SCH (08:30)
[2016-06-10] MEDS ORDERED: Magnesium Sulf 4 Gm/100 mL H2O 4 GM in IV Premix 1 EACH IV ONE (08:30)
[2016-06-10] MEDS ORDERED: Bupivacaine-MPF 0.5% W/EPI 30 mL Inj INFILTRATE ONE (09:00)
--- NOTE | 2016-06-10 09:15 | NUR ---
To OR Pt leaves on bed to OR for Sx. 3L-4L oxymask, IV SL. A&OX4 but forgetful at times. Report given to OR nurse. Family at bedside follows pt up to OR.
--- NOTE | 2016-06-10 09:43 | PCM.HPANE ---
Patient Data Surgeon Admitting Provider:Sasha Horton MD Attending Provider:Sasha Horton MD Primary Care Physician:Angel Stock MD Other Provider:Teresita Buitrago Anesthesia Reason for Visit Left Femoral Neck Fracture LEFT FEMORAL NECK FRACTURE Ht/WT & BMI Height (Feet): 5 Height (Inches): 11.00 Weight (Kilograms): 81.000 Body Mass Index 26.45 Allergies Coded Allergies: Sulfa (Sulfonamide Antibiotics) (Verified Allergy, Severe, 06/08/16) No Known Allergies (Verified Allergy, Unknown, 06/08/16) Past Anesthesia History Anesthesia History: Denies:: Abnormal Airway, Anesthesia Reactions, Difficult Intubation, Fam Anesthesia Reaction, Fam Malignant Hypertherm, Malignant Hyperthermia Diabetes History Hx Diabetes?: No MRSA MRSA: No Medications Last Dose Blood Thinner: Jun 07, 2016 Hypertension Medication: No Home Meds Incl Beta Esau: No Reported Medications Guaifenesin (Guaifenesin ER)600 Mg Tab.er.[id number] Mg PO BID chest congestion 06/09/16 Acetaminophen 325 Mg Tablet1-2 Each PO Q4H PRN For Pain 06/08/16 Triamcinolone Acet (Triamcinolone Acetonide Cream)1 Applic/0.25 Gm Cr1 Applic EXT TID PRN rash apply to back prn 06/08/16 Tetrahyd/Zn/Peg 400/Hyprom/Gly (Visine Totality Eye Drops)15 Ml Drops2 Drop BOTH _EYES QID PRN For Eye Irritation 06/08/16 Primidone 50 Mg Jkkcls48 Mg PO TID 06/08/16 Cetirizine HCl (Zyrtec)10 Mg Tojpgzr90 Mg PO DAILY 06/08/16 Fluticasone Propionate (Flonase Allergy Relief)50 Mcg/Actuation Ulysses.susp2 Sprays NS DAILY 06/08/16 Albuterol Neb Soln 0.63 Mg/3 Ml Vial.neb0.63 Mg INHALATION QID PRN For Cough 06/08/16 Simvastatin 20 Mg Jentlp00 Mg PO DAILY 06/08/16 Donepezil 5 Mg Tablet5 Mg PO DAILY 06/08/16 Gabapentin 100 Mg Dlsvinz418 Mg PO TID 06/08/16 Nystatin 100,000 Unit/1 Ml Oral.susp5 Ml PO TID PRN oral thrush 06/08/16 Na Phos,M-B/Na Phos,Di-Ba (Fleet Enema)133 Ml Jeyzx321 Ml RC DAILY PRN For Constipation PER BOWEL PROTOCOL 06/08/16 Bisacodyl (Dulcolax Rectal)10 Mg Supp.rect10 Mg RC DAILY PRN For Constipation PER BOWEL PROTOCOL 06/08/16 Bisacodyl (Dulcolax)5 Mg Tablet.dr5-10 Mg PO DAILY PRN For Constipation PER BOWEL PROTOCOL 06/08/16 Magnesium Hydroxide (Milk of Magnesia)400 Mg/5 Ml Oral.susp30 Ml PO DAILY PRN For Constipation PER BOWEL PROTOCOL 06/08/16 Acidophilus/Pectin, Carver (Acidophilus Caplet)1 Each Tablet1 Each PO BID PRN when on antibiotics 06/08/16 Multivitamin (Multivitamins)1 Each Capsule1 Each PO DAILY 06/08/16 Omeprazole 20 Mg Capsule.dr20 Mg PO DAILY 06/08/16 Venlafaxine 75 Mg Rtpwjq40 Mg PO DAILY 06/08/16 Rivaroxaban (Xarelto)20 Mg Zpbcol97 Mg PO DAILY 06/08/16 Cholecalciferol (Vitamin D3) (Vitamin D3)2,000 Unit Tablet2,000 Unit PO DAILY 06/08/16 Levothyroxine Sodium (Levo-T)75 Mcg Ikdnqy39 Mg PO DAILY 06/08/16 Tiotropium [place] (Spiriva)18 Mcg Cap.w.dev1 Capsule INHALATION DAILY 06/08/16 Discontinued Reported Medications Primidone-Expunged Drug, Do Not Renew! (Mysoline-Expunged Drug, Do Not Renew!) 50 Mg Tab50 Mg PO TID 06/09/12 Propranolol-Expunged Drug, Do Not Renew! 10 Mg Tab10 Mg PO TID 06/09/12 Levothyroxine-Expunged Drug, Do Not Renew! (Synthroid-Expunged Drug, Do Not Renew!)75 Mcg Tablet0.075 Mg PO DAILY 0.075 MG = 75 MCG 06/09/12 Omeprazole-Expunged Drug, Do Not Renew! 20 Mg Tablet.dr20 Mg PO DAILY 06/09/12 CHOLECALCIFEROL-Expunged Drug, Do Not Renew! (VITAMIN D-Expunged Drug, Do Not Renew!)400 Unit Tablet2,000 Unit PO DAILY 07/15/11 Warfarin Inactive Drug Do Not Use (Coumadin Inactive Drug Do Not Use)5 Mg Tablet7.5 Mg PO DAILY 07/15/11 Simvastatin-Expunged Drug, Choose New Med! 10 Mg Sbxvgp47 Mg PO HS 07/15/11 History History of ENT Problems?: Yes HEENT History: Positive for:: Dysphagia Hearing Problem Denies:: Abnormal Airway Cataracts Difficult Intubation Glaucoma Sinus Problem Denture Type: Full- Upper Full- Lower Hx of Heart Problems?: Yes Cardiovascular History: Positive for:: Hypertension Irregular Heartbeat (a-fib) Denies:: Cardiac Surgery Chest Pain Congestive Heart Failure Edema Heart Murmur Pacemaker Thrombophlebitis Hx of Respiratory Problem?: Yes Respiratory History: Positive for:: COPD Dyspnea Emphysema Pneumonia (intensive care hospitalization at [facility] March 2016) Denies:: Asthma Chest Surgery Hemoptysis Tuberculosis Hx Neurologic Problems?: Yes Neurological History: Positive for:: Dementia Headaches Denies:: Alzheimer's Disease CVA Dizziness Parkinson's Disease Seizures Hx of GI Problems?: Yes Gastrointestinal History: Positive for:: Gastroesphageal Reflux Heartburn Rectal Bleeding Denies:: Diverticulitis Gastrointestinal Bleeding Hepatitis Hiatal Hernia Hx of Problems?: Yes Genitourinary History: Denies:: HX of Hemodialysis Kidney Stones Urinary Tract Infection HX of Peritoneal Dialysis: No Male Hx: Positive for:: Prostate Problems (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) Denies:: Scrotal Mass Testicular Surgery Hx Musculoskeletal Problems?: Yes Musculoskeletal History: Positive for:: Back Injury Musculoskeletal Trauma (femoral shaft fracture open reduction and casting) Denies:: Joint Replacement Hx of Psycho/Social Problems?: Yes Psycho Social History: Positive for:: Anxiety Denies:: Bipolar Disorder Hx Depression Suicide Attempt Hx Surgeries?: Yes (left femur open reduction , laparoscopic cholecystectomy) Hx Any Other Health Problems?: Yes Other History: Positive for:: Cancer Hospitalization Thyroid Disease Denies:: Endocrine Disease History Blood Transfusions: Positive for:: Accept Blood Products? Denies:: Blood Transfuse Reaction Blood Transfusions Hx Diabetes: No Hx Alcohol Use: Yes (used to drink but none since March)Hx Substance Use: No Smoking Status: Former Smoker Have You Smoked inLast 12 mo: No Stop/Bang Treated for Sleep Apnea?: Yes Do You Have a CPAP Machine?: Yes S-Snoring: Do You Snore Loudly: Yes T-Tired: feel tired, fatigued: Yes O-Obsered: Observed not breath: No P-Blood Pressure: treated: Yes B- Body Mass Index > 35 kg/m2: No A- Age over 50: Yes N- Neck Large Circumference: No G- Gender Male: Yes AMEYA Total Score: 4 AMEYA Risk Assessment: High Risk, =/>3 Yes AMEYA Category 2: Yes Risk Assessment Category Category 1A: Patient has history of documented sleep apnea, and HAS NOT received any narcotic, sedative or anesthesia administration during this stay. Category 1B: Patient has history of documented sleep apnea, and HAS received any narcotic , sedative or anesthesia administration during this stay Category 2: Patient has SUSPECTED Obstructive Sleep Apnea, and HAS received any narcotic , sedative or anesthesia administration during this stay. Category 3: Patient has SUSPECTED Obstructive Sleep Apnea and HAS NOT received narcotic, sedative or anesthesia administration during this stay. Category 4: Outpatient in Procedural Areas with known sleep apnea or who screen positive for High Risk via the STOP/BANG questionnaire. Exam Exam Vital Signs Vital Signs Date Time Temp Pulse Resp B/P Pulse Ox O2 Delivery O2 Flow Rate FiO2 06/10/16 08:48 88 06/10/16 06:53 97 06/10/16 06:31 37.1 84 20 128/85 98 OxyMask 4.00 06/10/16 04:52 96 20 97 OxyMask 4.00 06/10/16 02:05 36.9 78 18 116/70 97 OxyMask 4.00 General Appearance: Alert, Oriented X3, Cooperative, No Acute Distress HEENT/AIRWAY: MP 2 Lungs: Clear to Auscultation, Normal Air Movement Heart: Exam Unremarkable, Regular Rate/Rhythm, No Murmurs/Rubs/Gallops Meds/Labs/Diagnostics Admission Meds Current Medications Pantoprazole 40 mg 40 mg DAILYAC IVPUSH Last administered on 06/10/16 08:01; Start 06/10/16 at 07:30 Lactated Ringer's (Lr) 1,000 ml @ 75 mls/hr [id number] IV Last administered on 02:48; Start 06/10/16 at 02:45 Bupivacaine HCl/ Epinephrine Bitart (Sensorcaine-MPF 0.5% W/EPI Inj) 30 ml STK- MED ONCE INFILTRATE Last administered on 06/10/16 09:00; Start 06/10/16 at 09: 00; Stop 06/10/16 at 08:49; Status DC Labs Test 06/08/16 18:00 06/09/16 03:49 06/09/16 05:59 06/10/16 05:40 Hold Khanna Top Tube Received (Received) Urine Color Dark yellow (YELLOW) Urine Appearance Hazy (CLEAR,HAZY) Urine pH 5.0 (5.0-8.0) Urine Specific [place] 1.030 (1.003-1.035) Urine Protein Negativemg/dL (NEG,TRACE) Urine Glucose (UA) Negativemg/dL (NEGATIVE) Urine Ketones Negativemg/dL (NEGATIVE) Urine Occult Blood Negative (NEGATIVE) Urine Nitrite Negative (NEGATIVE) Urine Bilirubin Negative (NEGATIVE) Urine Urobilinogen Normalmg/dL (NORMAL) Urine Leukocyte Esterase Negative (NEGATIVE) Urine RBC 0-2/hpf (0-2) Urine WBC 0-5/hpf (0-5) Urine Epithelial Cells Occasional/hpf (NONE-MOD) Urine Crystals None seen (NONE SEEN) Urine Bacteria Few/hpf (NONE-FEW) Urine Hyaline Casts Occasional/lpf (NONE) Urine Granular Casts None seen (NONE SEEN) Urine Waxy Casts None seen (NONE SEEN) Urine Red Blood Cell Casts None seen (NONE SEEN) Urine White Blood Cell Casts None seen (NONE SEEN) Urine Mucus Present (None Seen) Urine Trichomonas None seen (NONE SEEN) Urine Yeast None (NONE SEEN) Urinalysis Comment None Urine Culture Reflexed Not indicated Prealbumin 12mg/dL (20-40) White Blood Count 10.3th/mm3 (3.8-10.1) Red Blood Count 3.73mil/mm3 (4.40-5.80) Hemoglobin 11.3g/dL (13.8-17.2) Hematocrit 35.3% (41.0-50.0) Mean Corpuscular Volume 94.6fL (81-100) Mean Corpuscular Hemoglobin 30.3pg (27.0-35.0) Mean Corpuscular Hemoglobin Concent 32.0% (32.0-37.0) Red Cell Distribution Width 14.7% (12.3-15.4) Platelet Count 259bil/L (150-400) Neutrophils (%) (Auto) 78.7% (40-74) Lymphocytes (%) (Auto) 10.3% (14-46) Monocytes (%) (Auto) 6.0% (4-12) Eosinophils (%) (Auto) 4.4% (0-5) Basophils (%) (Auto) 0.2% (0-3) Prothrombin Time 12.6sec (8.1-12.5) Prothromb Time International Ratio 1.17ratio Sodium Level 139mEq/L (134-144) Potassium Level 4.2mEq/L (3.5-5.2) Chloride Level 101mEq/L (97-108) Carbon Dioxide Level 29mmol/L (18-29) Blood Urea Nitrogen 14mg/dL (8-27) Creatinine 0.70mg/dL (0.76-1.27) Estimat Glomerular Filtration Rate 113mL/min (>59) Glucose Level 102mg/dL (60-99) Calcium Level 8.4mg/dL (8.5-10.1) Phosphorus Level 2.4mg/dL (2.5-4.9) Magnesium Level 1.7mg/dL (1.6-2.6) Total Bilirubin 0.4mg/dL (0.0-1.2) Aspartate Amino Transf (AST/SGOT) 14U/L (0-50) Alanine Aminotransferase (ALT/SGPT) 15U/L (0-44) Alkaline Phosphatase 93U/L (25-160) Total Protein 5.7g/dL (6.4-8.4) Albumin 2.7g/dL (3.4-5.0) Plan Impression Patient chart reviewed, patient interviewed and anesthestic plan with risks, benefits, and alternatives discussed, and informed consent obtained. ASA Physical Status: ASA3 Severe Disease Anesthetic Plan: SAB Bene/Risks/Altern/Consents: Yes HP Complete Prior to Induction: Yes Other recent and ongoing small pneumonia. Now better than he was 2 days ago. For SAB discussed with pt and family. Daughter signed due to pts essential tremor; Doyle Mckee MD Jun 10, 2016 09:43
[2016-06-10] MEDS ORDERED: Lactated Ringer's 1,000 ML IV ONE (09:45)
[2016-06-10] MEDS ORDERED: Lactated Ringer's 500 ML IV PRN (10:30)
[2016-06-10] MEDS ORDERED: Dexamethasone 4 mg/mL Inj IVPUSH PRN (10:30)
[2016-06-10] MEDS ORDERED: Lactated Ringer's 1,000 ML IV SCH (10:30)
[2016-06-10] MEDS ORDERED: EPHEDrine Sulfate 50 mg/mL Inj IVPUSH PRN (10:30)
[2016-06-10] MEDS ORDERED: MetoCLOpramide 5 mg/mL 2 mL Inj IVPUSH PRN (10:30)
[2016-06-10] MEDS ORDERED: Ondansetron 2 mg/mL 2 mL Inj IVPUSH PRN (10:30)
[2016-06-10] MEDS ORDERED: Labetalol 5 mg/mL 4 mL Inj IV PRN (10:30)
[2016-06-10] MEDS ORDERED: Phenylephrine 10,000 mCg/mL Inj IVPUSH PRN (10:30)
[2016-06-10] MEDS ORDERED: hydrALAZINE 20 mg/mL Inj IVPUSH PRN (10:30)
[2016-06-10] MEDS ORDERED: HYDROmorphone 1 mg/mL Inj IVPUSH PRN (10:30)
[2016-06-10] MEDS ORDERED: Atropine 0.4 mg/mL Inj IVPUSH PRN (10:30)
[2016-06-10] MEDS ORDERED: fentaNYL-PF 50 mCg/mL 2 mL Inj IVPUSH PRN (10:30)
--- NOTE | 2016-06-10 11:55 | NUR ---
Returns from OR Pt returns from OR alert and oriented to self and place. Denies pain at rest. Denies SOB, Nausea, or CP. 4L NC to keep SPO2 >92%. Soto patent and draining to gravity. SCDs in use. IV R FA in use. Care continues
--- NOTE | 2016-06-10 12:03 | PCM.ANEP1 ---
Post Anesthesia Phase 1 PACU Phase 1 Assessment Date of Service: Jun 08, 2016 Vital Signs Vital Signs Date Time Temp Pulse Resp B/P Pulse Ox O2 Delivery O2 Flow Rate FiO2 06/10/16 11:43 36.6 99 22 139/77 94 Nasal Cannula 2 06/10/16 11:29 97 23 133/70 92 Room Air 06/10/16 11:22 16 96 06/10/16 11:21 103 16 136/86 100 Room Air 06/10/16 11:13 100 25 137/70 97 Simple Mask 8 06/10/16 11:07 36.8 93 20 137/70 92 Simple Mask 8 06/10/16 08:48 88 06/10/16 08:00 Supplement Oxygen 06/10/16 06:53 97 06/10/16 06:31 37.1 84 20 128/85 98 OxyMask 4.00 06/10/16 04:52 96 20 97 OxyMask 4.00 Anesthetic Administered: GA Level of Alertness: Awake, talking HONG's with Equal Strength: Yes Pain: No Pain Scale Score: 8 Nausea or Vomiting: No Oxygen Delivery: Simple Mask Lungs: Clear to Auscultation, Normal Air Movement Dermatome Level: L5,S1 (Foot) Doyle Mckee MD Jun 10, 2016 12:03
--- NOTE | 2016-06-10 12:03 | PCM.ANEP2 ---
Post Anesthesia Evaluation ASA/CMS Post Anesthesia VS in Patient's Normal Range?: Yes Resp Stable; Airway Patent?: Yes CV Function & Hydration Stable: Yes Mental Status Recovered?: Yes Pain control Satisfactory?: Yes N/V Control Satisfactory?: Yes Doyle Mckee MD Jun 10, 2016 12:03
--- NOTE | 2016-06-10 12:05 | PCM.ORTHOB ---
Immediate Operative Note Date of Service: Jun 10, 2016 Pre Operative Diagnosis Left femoral neck fracture Post Operative Diagnosis Same Procedure Left hip in situ cannulated pinning of femoral neck fracture Surgeon Surgeon: Moshe Jett M.D. Assistants: Rafael Kulkarni PA-C Findings Left hip minimally displaced mid femoral neck fracture satisfactorily pinned in situ with 3 Synthes partially threaded 7.3 mm cannulated screws. Intraoperative fluoroscopic views confirmed no intra-articular penetration from our placed hardware and no further displacement of the femoral neck fracture. Grafts, Implants: Implants-See Implant Record Complications There were no periprocedural complications identified. Condition Stable Anesthetic Administered: SAB Drains: None Catheters: Urethral 2 Way Soto Output, Estimated Blood Loss: 10 Blood Admin during surgery: No Surgical Cast or Splint: None Surgical Specimen Removed: No Surgical Specimen sent to Path: No Post Operative Plan Patient will be mobilized immediately. The patient will be restricted to touchdown weightbearing through the left lower extremity for the next 6 weeks postop. The patient will be started on Lovenox 40 mg daily for DVT prophylaxis , but may be superseded by any needed anticoagulation management for the patient 's chronic atrial fibrillation may be resumed from this point on. Surgical wound dry dressing change and wound check will occur postop day #2 and dry dressings can be changed over the surgical incision sit after that point until skin staple removal on or after postoperative day #12. Patient should be seen in orthopedic office as an outpatient when 2 weeks postop. Moshe Jett MD Jun 10, 2016 12:05
--- NOTE | 2016-06-10 12:12 | PCM.ORTHOP ---
Orthopedic Operative Report Date of Service: Jun 10, 2016 Pre Operative Diagnosis Left femoral neck fracture Post Operative Diagnosis Same Procedure Left hip in situ cannulated pinning of femoral neck fracture Surgeon Surgeon: Moshe Jett M.D. Assistants: Rafael Kulkarni PA-C Indication for Procedure Patient is an 86-year-old gentleman sustained a minimally displaced left hip femoral neck fracture in a ground-level fall off of his bed at a long term facility to 06/08/2016. The patient sustained a closed, neurovascularly intact, minimally displaced left femoral neck fracture. The patient was on chronic anticoagulation therapy and required sufficient time to pass to allow for his anticoagulation to be reversed and his pulmonary status to be optimized prior to his definitive hip fracture surgery. The skilled assistance of a physician's endodontic assistant, Rafael Kulkarni PA-C, was necessary for the successful completion of this case. The PA was essential for the proper positioning, manipulation of instruments, proper exposure, manipulation of tissues and wound closure. Findings Left hip minimally displaced mid femoral neck fracture satisfactorily pinned in situ with 3 Synthes partially threaded 7.3 mm cannulated screws. Intraoperative fluoroscopic views confirmed no intra-articular penetration from our placed hardware and no further displacement of the femoral neck fracture. Details of Procedure The patient was brought to the OR and given it a spinal anesthetic performed by the anesthesia service. He is placed in the supine position on the fracture table and well-padded in line boot traction. Left lower extremity and hip seemed a trauma scrub and then were prepped and draped in usual sterile fashion. The procedure was performed under intraoperative fluoroscopic guidance. A 3 cm lateral longitudinal incision was placed just distal to the level of the lesser trochanter over the lateral hip. Incision was taken down through subcutaneous tissues to the fascial deep to expose the vastus lateralis. A Natalie gun guide sleeve was then used to place 3 partially threaded guidewires and proximal to the level of the lesser trochanter through the center of the femoral neck and into the subchondral bone of the femoral head spanning the fracture site in an inverted triangular pattern, apex inferior. We then placed 3, partially threaded, Synthes 7.3 mm cannulated screws over the threaded guidewires and into the subchondral bone of the femoral head. Intraoperative fluoroscopic views confirm satisfactory reduction and fixation. Bone quality was assessed to be satisfactory. There was no intra -articular penetration from our placed hardware. We thoroughly irrigated the wound and closed in layers. We used a running #1 Vicryl for repair of the fascial deep. 2-0 Vicryl was used to close the subcutaneous tissues. Amrik used to close the skin. 20 mL of 0.5% Marcaine with epinephrine was infiltrated into the wound at the end of the case. Wound was dressed with Xeroform and dry gauze dressings. The patient was taken back to PACU in stable and satisfactory condition. There were no complications. The patient tolerated the procedure well. Grafts, Implants: Implants-See Implant Record Complications There were no periprocedural complications identified. Condition Stable Anesthetic Administered: SAB Drains: None Catheters: Urethral 2 Way Soto Output, Estimated Blood Loss: 10 Blood Admin during surgery: No Surgical Cast or Splint: None Surgical Specimen Removed: No Specimen sent to Pathology: No Post Operative Plan Patient will be mobilized immediately. The patient will be restricted to touchdown weightbearing through the left lower extremity for the next 6 weeks postop. The patient will be started on Lovenox 40 mg daily for DVT prophylaxis , but may be superseded by any needed anticoagulation management for the patient 's chronic atrial fibrillation may be resumed from this point on. Surgical wound dry dressing change and wound check will occur postop day #2 and dry dressings can be changed over the surgical incision sit after that point until skin staple removal on or after postoperative day #12. Patient should be seen in orthopedic office as an outpatient when 2 weeks postop. copies to: Angel Stock MD; Moshe Jett MD, Michael G.E MD Jun 10, 2016 12:12
--- NOTE | 2016-06-10 13:05 | DRSVH ---
PROCEDURE: X-RAY PELVIS W/LAT HIP (LT) ([id number]) INDICATIONS: POST OP TECHNIQUE: AP pelvis with lateral view(s) of the left hip(s). COMPARISON: [facility], , FEMUR TWO OR MORE VIEWS LEFT, 06/08/2016, 13:12. FINDINGS: Bones: Acute nondisplaced fracture of the left femoral neck has been fixated with 3 cannulated screws from lateral aspect beneath the greater trochanter. Soft tissues: The visualized bowel gas pattern is normal. No suspicious soft tissue calcifications. IMPRESSION: 3 cannulated screws are used to transfix the acute femoral neck fracture. Dictated by: Cuco Dietrich M.D. on 06/10/2016 at 13:02 Approved by: Cuco Dietrich M.D. on 06/10/2016 at 13:03
[2016-06-10] MEDS: Fluconazole Inj 200 MG in IV Premix 1 EACH IV SCH (13:47)
[2016-06-10] MEDS: Venlafaxine XR 75 mg ER24 Capsule PO SCH (13:51)
[2016-06-10] MEDS ORDERED: 0.9% Sodium Chloride 100 ML ONE (14:11)
--- NOTE | 2016-06-10 16:11 | NUR ---
Social Work- Initial Assessment Data: Pt is a 86 year old male admitted 06/08/16 for left femoral neck fracture per H&P. Pt's insurance is Medicare and PCP is Papo Eagle MD. EMR reviewed. JEEVAN met with pt and family at bedside to discuss discharge planning, SW role explained. As pt had recently returned from [place], he did not participate in this conversation. DPOA is daughter Jahaira Yeung, . Pt resides in [facility] and daughter states he would like to return. Pt uses a walker at baseline and does not drive. Pt has no HH history. Pt has no LTC or VA benefits. Pts daughter states she has been actively pursuing Medicaid enrollment. She states she is almost complete with this process. PT evaluation pending. SW left phone number on whiteboard. SW continues to follow for discharge needs. Assessment: Pt who resides at [facility] Data: PT evaluation pending. Pt amenable to return to [facility], where he is a resident. SW continues to follow for discharge needs. UDAY Renee Addendum: 06/10/16 at 1612 by LIDIA HAWKINS SS Amended: Links added.
--- NOTE | 2016-06-10 16:19 | PCM.PNMED ---
Subjective Date of Service Jun 10, 2016 Subjective Patient was seen after surgery and he was in very good spirits. He had no new complaints. Exam Vital Signs Vital Sign - Last Date Time Temp Pulse Resp B/P Pulse Ox O2 Delivery O2 Flow Rate FiO2 06/10/16 12:05 36.6 112 19 133/82 93 Nasal Cannula 3.00 Intake and Output 06/09/16 06/09/16 06/10/16 Cumulative From/Thru 15:00 23:00 07:00 06/08/16 17:24 - 06/10/16 06:31 Intake Total 1985 ml 1377 ml 4322 ml Output Total 650 ml 300 ml 1315 ml Balance 1335 ml 1077 ml 3007 ml Intake Oral 800 ml 150 ml 950 ml IV Total 1185 ml 1227 ml 3372 ml Output Urine Total 650 ml 300 ml 1315 ml # Voids 1 # Bowel Movements 0 0 Exam General: Patient is in no apparent distress on an oxygen mask. He is in very good spirits postoperatively. HEENT: Head is atraumatic and normocephalic. Patient has normal male pattern baldness. Eyes: Pupils are equally round and reactive to light and accommodation. Extraocular muscles are intact. Sclera are white, anicteric. Subconjunctival mucosa is pink. Ears and nose are unremarkable. Oropharynx: There is no mucosal lesions, there is no thrush, there is no pharyngitis. Oral mucosa slightly dry. Neck: Is supple, there are no nodes, or masses or tenderness. Chest: There continue to be coarse breath sounds and few scattered rales. Otherwise fairly clear. Heart: Rate, rhythm is regular. There is no new murmur, rub or gallop. Abdomen: Good bowel sounds are present. Abdomen is soft, nontender, no organomegaly or masses were appreciated. Extremities: Are well perfused. The left lower extremities roughly 2-3 inches shorter than the right lower extremity. There is no edema, there is no cellulitis, no rash. The left hip dressing is clean dry and intact. Neurologic: There are no focal neurological deficits. Cranial nerves II through XII are intact. There are no sensory or motor deficits. Psychiatric: Patients mood is calm and he shows no sign of agitation. Genital: Deferred Rectal: Deferred Lab and Diagnostics Result Diagram: 06/10/1640 06/10/1640 Microbiology Blood cultures are pending X-Rays, CTs and MRIs PROCEDURE: X-RAY CHEST ONE VIEW, PORTABLE ([id number]) INDICATIONS: fever, history of aspiration pneumonia TECHNIQUE: One view of the chest was acquired. COMPARISON: [facility], , CHEST 1 VIEW, 04/07/2016, 15:12. FINDINGS: Surgical changes and devices: None. Lungs and pleura: Lungs are hyperinflated. No pneumothorax is seen. No pleural effusion is seen. No ill-defined areas of scattered increased markings in the periphery of the left lung and possibly inferiorly into right lung. These could be small areas of recurrent pneumonia. Mediastinum: Mediastinal contours appear normal. Heart size is normal. Bones and chest wall: No suspicious bony lesions. Overlying soft tissues appear unremarkable. IMPRESSION: Compared to the chest x-ray in March of 2016 is been significant improvement in the appearance of the infiltrates. Currently there ill-defined patchy areas of density in the periphery of the left lung and possibly right base suggestive of small infiltrates. Assessment & Plan According to Dr. Horton The patient's daughter reported that the patient was hospitalized in March with severe aspiration pneumonia and Fever, he required ICU care and she said they had to give him up to 15 liters of oxygen. Per notes he also had mario esophagitis. Since then he has been at [facility] half-way facility. She was doing so well he was soon to graduate and go back to his assisted living facility. 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 The staff found him lying on the floor on left side complaining of left hip pain. He was seen at [facility] emergency department and transferred here for admission. Upon arrival he was noted to be febrile and is requiring 6 L of oxygen. Daughter notes he has still continued to have a chronic cough at the rehabilitation facility, he was treated with doxycycline on May 16, and apparently also Tamiflu. Daughter thinks his influenza test was positive but rehab notes say he was treated in spite of a negative test. # The patient suffered a left femoral neck fracture after a ground-level fall - The patient was taken to the operating room today by Dr. Moshe Jett and his findings were as follows: "Left hip minimally displaced mid femoral neck fracture satisfactorily pinned in situ with 3 Synthes partially threaded 7.3 mm cannulated screws. Intraoperative fluoroscopic views confirmed no intra-articular penetration from our placed hardware and no further displacement of the femoral neck fracture". # Fever, resolved, most likely is due to recurrent aspiration pneumonia - Obtain serial chest x-rays - Check blood cultures which are negative at 24 hours, and urinalysis is unremarkable - Continue Unasyn - I have consulted speech therapy and they have recommended a modified barium swallow. Therefore will check modified barium swallow on Saturday after his surgery. # Hypoxia likely secondary to above - Treat probable pneumonia as noted above - Oxygen therapy as needed - Resume CPAP at night which he had been on in the recent past - Continue Spiriva - As needed albuterol nebulizer # Dysphagia - Go back on dysphagia diet with thickened liquids - Speech therapy evaluation appreciated - Check modified barium swallow # Chronic atrial fibrillation, now with some increased ventricular response - Most likely due to fever - We will give IV fluid and if does not improve consider medication for rate control - Since Xarelto is being held for hip surgery patient will need to have Xarelto restarted postoperatively at the discretion of orthopedic surgery # INR of 1.9 at [facility] ED and now normal here at the time of this admission (as noted above is now on Xarelto instead of warfarin and it is being held). # Recent thrush treated at [facility]. - As patient has been placed on broad-spectrum IV antibiotics we will restart empiric treatment with Diflucan. - We will change Diflucan from IV to by mouth postoperatively. Disposition: The patient will need a few days of hospitalization postoperatively prior to being transferred back to rehabilitation. Case discussed with patient's daughter and son-in-law and grandson at bedside at length that agree with the above plan. Pain Evaluation: Adequate Pain Control GI Prophylaxis: Proton Pump Inhibitor VTE Prophylaxis: Other (Lovenox 80 mg daily as ordered by hospitalist service. This will be discontinued as patient is having surgery in a.m.) VTE Mechanical Devices: Intermittant Pneumatic CD Resuscitation Status: DNR/DNI:Do Not Resuscitate/Intubate Willi Siddiqui MD Jun 10, 2016 16:19
--- NOTE | 2016-06-10 18:28 | NUR ---
Confusion Some confusion noticed this afternoon. Pt was seen grabbing at a few things. Was easily redirected. Pt also asked to get up into chair back in his room. Pt was reoriented. Some confusion seems increased when compared to his normal. Charge nurse advised, romina in place, romina hand covers place on pt as well. Care continues
[2016-06-11] VITALS (9 sets, daily range): BP systolic 104–166; BP diastolic 50–78; PULSE 84–100; RESP 16–20; O2SAT 92–97
[2016-06-11] MEDS: Lactated Ringer's 1,000 ML IV SCH ×2 (01:43→18:04)
[2016-06-11] MEDS: Ampicillin-Sulbactam Inj 3,000 MG in 0.9% Sodium Chloride 100 ML IV SCH ×4 (01:54→21:17)
--- NOTE | 2016-06-11 02:36 | NUR ---
PAIN/PSYCH; Turned q 2hrs and repositioned. Dressing c/d/i. Ortho checks wnl. Ice to dsg. Pt c/o soreness, finally agreed to take some tylenol and is drifting off to sleep at this time. Cleared up mentally. Alert and oriented. 02 on per 0xymask. PARTS IDENTIFICATION TECHNICIAN on. Soto catheter draining victorino urine.
[2016-06-11] MEDS ORDERED: 0.9% Sodium Chloride 100 ML ONE (04:20)
--- NOTE | 2016-06-11 05:36 | NUR ---
GI; npo since 199 for barium swallow today. Addendum: 06/11/16 at 0541 by DAMIR ALVARES RN Plan; hold synthroid until after study.
--- NOTE | 2016-06-11 06:15 | NUR ---
ALDO; jessica perez/jonnathan per protocol.
[2016-06-11 06:40] LABS: BASOPHILS % (AUTO) 0.2 % (0-3); EOSINOPHILS % (AUTO) 4.4 % (0-5); MONOCYTES % (AUTO) 7.2 % (4-12); Mean Corpuscular Hemoglobin 30.9 pg (27.0-35.0); Mean Corpuscular Volume 94.3 fL (81-100); NEUTROPHILS % (AUTO) 72.6 % (40-74); Platelet Count 238 bil/L (150-400)
[2016-06-11] MEDS: Fluconazole Inj 200 MG in IV Premix 1 EACH IV SCH (08:02)
[2016-06-11] MEDS: Pantoprazole 4 mg/mL 10 mL Inj IVPUSH SCH (08:12)
[2016-06-11] MEDS: Fluticasone 0.05% 15 Spray/2 Gm 16 Gm Nasal Spray NASAL SCH (08:18)
[2016-06-11] MEDS: Venlafaxine XR 75 mg ER24 Capsule PO SCH (08:19)
[2016-06-11] MEDS: Tiotropium 18mcg/Cap 5 Capsule Inhaler Kit INHALATION SCH (08:26)
--- NOTE | 2016-06-11 09:38 | NUR ---
MBSS completed today. Patient noted to have flash penetration with thin and decreased laryngeal constriction with fatigue over time. Rec: [place]/Pureed diet add cottage cheese and one DM item per tray. Full report to be dictated today. Please call [facility]PER with any questions.
--- NOTE | 2016-06-11 09:47 | DRSVH ---
PROCEDURE: X-RAY BARIUM SWALLOW WITH FOOD & VIDEOGRAPHY ([id number]) INDICATIONS: aspiration pneumonia TECHNIQUE: Examination was conducted in conjunction with speech pathology per standard protocol. In the lateral projection, filming was performed of the patient swallowing. AP projection filming may also be performed with patient swallowing. COMPARISON: None. FINDINGS: Function: The oral preparatory phase appears normal, with proper containment. The subsequent oral pr opulsive phase, pharyngeal phase, and esophageal phase of swallowing also appear normal with all prof fered substances. Laryngeal penetration with thin liquids. The attending physician was personally pr esent in the room during the examination. Morphology: No cricopharyngeal bar is identified. No cervical esophageal webs. No Zenker's diverti culum. No strictures. IMPRESSION: Laryngeal penetration. Dictated by: Dashawn MCARTHUR Interpreted: Manjit Sanchez MD on 06/11/2016 at 9:46 Transcribed by: TK on 06/11/2016 at 9:46 Approved by: Lb Sanchez M.D. on 06/11/2016 at 14:40
--- NOTE | 2016-06-11 10:02 | NUR ---
Wound Care Pressure ulcer protocol received, pt seen at bedside. 86 yo male s/p left hip fracture, lying comfortably on a P500 bed. No pressure related skin issues noted.
[2016-06-11 10:39] LABS: INR 1.12 ratio
--- NOTE | 2016-06-11 11:12 | NUR ---
Social Work- Continued d/c Planning Data: EMR reviewed. Pt is on day 3 of hospitalization for left femoral neck fracture per H&P. Pt is POD 1. PT evaluation to be ordered today. JEEVAN placed a call to Sathya at [facility] [phone] who confirms they are able to accept pt back when medically stable. Sathya requesting updated clinicals, which have been faxed. Paperwork placed in chart. JEEVAN will continue to follow. Assessment: Pt who would benefit from SNF. Plan: Pt to discharge back to [facility] when medically stable, Dr. Weir to follow. PT evaluation pending. Paperwork in chart. JEEVAN will continue to follow. UDAY Renee
--- NOTE | 2016-06-11 11:12 | NUR ---
SW spoke with Sathya at [facility] who confirms they are able to accept pt back with Dr. Weir to follow. Carla Lemus, MOOSE HUNTER
[2016-06-11] MEDS: HYDROcodone-APAP 5-325 mg Tablet PO PRN (11:41)
--- NOTE | 2016-06-11 11:48 | NUR ---
NUTRITION ASSESSMENT Assess: 86 YO M admitted with left femoral neck fracture s/p repair. Diet advanced to pureed, pt has had poor PO X 3 days. PMHX: Afib, essential tremor, AMEYA, COPD/emphysema, CAD, dementia, Luz's esophagus, prostate cancer, HLD, restless leg syndrome, hypothyroidism, depression, dysphagia, polyneuropathy. DIET: Pureed. PO intake 0-50%. LABS: Cr 0.61, Ca 8.2, Alb 2.4 MEDICATIONS: Vitamin D, Bacid. GI: No BM noted. SKIN: No issues noted. WEIGHT: 81.2 kg, BMI 25.0 kg/m2, Admit wt: 85.7 kg. ESTIMATED NEEDS: COPD Calories: 4802-5078 kcal/day (30-35 kcal/kg BW) Protein: 97-122 g/day (1.2-1.5 g/kg BW) NUTRITION DIAGNOSIS: 1) Inadequate oral intake related to decreased ability to consume sufficient energy as evidenced by poor PO X 3 days. INTERVENTION: 1) Continue current diet as ordered. 2) Diet advance per speech therapy. MONITOR/EVALUATE: PO intake, diet tolerance/advance, labs, GI/nutrition status. Follow per moderate nutrition risk guidelines.
--- NOTE | 2016-06-11 12:04 | PCM.PNORTH ---
Subjective Date of Service: Jun 11, 2016 Visit Information: Reason for Visit Left Femoral Neck Fracture Surgery/Surgery Date L HIP IN SITU CANNULATED PINNING OF FEMORAL NECK FX Post-Op Day # Date of Admission: Jun 08, 2016 at 15:59 Hospital Day # Subjective Status post day #1 left hip pinning with cannulated screws. Patient states he is doing well, pain is well controlled. Understands that he cannot walk much at all on this hip and will be toe touch only, does not feel like he will be able to return to regular activity and will need help with this. Postop General: No Complaints, No Shortness of Breath, No Chest Pain Objective Exam Objective Patient is alert and oriented 3. Answering questions appropriately. Sitting up in bed and not in any acute distress today. Dressing is clean dry and intact. Patient able to wiggle toes. Calf is soft and nontender, pulses intact, sensation is full. Vital Signs and I/O Vital Sign - Last Date Time Temp Pulse Resp B/P Pulse Ox O2 Delivery O2 Flow Rate FiO2 06/11/16 10:09 90 06/11/16 10:05 36.6 18 128/66 96 Nasal Cannula 4.00 Intake and Output 06/10/16 06/10/16 06/11/16 Cumulative From/Thru 15:00 23:00 07:00 06/08/16 17:24 - 06/11/16 06:25 Intake Total 850 ml 660 ml 950 ml 6782 ml Output Total 260 ml 500 ml 675 ml 2750 ml Balance 590 ml 160 ml 275 ml 4032 ml Intake Oral 349 ml 200 ml 1499 ml IV Total 850 ml 311 ml 750 ml 5283 ml Output Urine Total 250 ml 500 ml 675 ml 2740 ml Estimated Blood Loss 10 ml 10 ml # Voids 1 # Bowel Movements 0 0 Lab & Micro Results Laboratory Tests Test 06/11/16 05:45 06/11/16 10:00 White Blood Count 8.9th/mm3 (3.8-10.1) Red Blood Count 3.33mil/mm3 (4.40-5.80) Hemoglobin 10.3g/dL (13.8-17.2) Hematocrit 31.4% (41.0-50.0) Mean Corpuscular Volume 94.3fL (81-100) Mean Corpuscular Hemoglobin 30.9pg (27.0-35.0) Mean Corpuscular Hemoglobin Concent 32.8% (32.0-37.0) Red Cell Distribution Width 14.2% (12.3-15.4) Platelet Count 238bil/L (150-400) Neutrophils (%) (Auto) 72.6% (40-74) Lymphocytes (%) (Auto) 15.0% (14-46) Monocytes (%) (Auto) 7.2% (4-12) Eosinophils (%) (Auto) 4.4% (0-5) Basophils (%) (Auto) 0.2% (0-3) Sodium Level 139mEq/L (134-144) Potassium Level 4.2mEq/L (3.5-5.2) Chloride Level 102mEq/L (97-108) Carbon Dioxide Level 29mmol/L (18-29) Blood Urea Nitrogen 11mg/dL (8-27) Creatinine 0.61mg/dL (0.76-1.27) Estimat Glomerular Filtration Rate 133mL/min (>59) Glucose Level 99mg/dL (60-99) Calcium Level 8.2mg/dL (8.5-10.1) Total Bilirubin 0.3mg/dL (0.0-1.2) Aspartate Amino Transf (AST/SGOT) 15U/L (0-50) Alanine Aminotransferase (ALT/SGPT) 11U/L (0-44) Alkaline Phosphatase 85U/L (25-160) Total Protein 5.2g/dL (6.4-8.4) Albumin 2.4g/dL (3.4-5.0) Prothrombin Time 12.0sec (8.1-12.5) Prothromb Time International Ratio 1.12ratio Microbiology 06/08/16 Blood Culture - Preliminary, Resulted No growth at 2 days; culture examined... Result Diagram: 06/11/1645 06/11/16544 Catheters: Urethral 2 Way Soto Assessment & Plan Impression Status post day #1 left hip pinning. Patient doing well, hemoglobin and hematocrit are stable at 10.3 and 31.4. Patient understands he will require SNF most likely and will try to work with physical therapy while here in the hospital. Problems: Plan Patient will work with physical therapy while here in the hospital to move to bedside chair and out of bed assist. Patient will remain toe-touch weightbearing only for 6 weeks. Patient will continue Lovenox 40 mg subcutaneous daily for 21 days, then aspirin 325 mg by mouth twice a day for 3 more weeks for DVT prophylaxis. We will plan to change dressing tomorrow. Thank you to hospitalist team for managing this patient's other medical conditions. Anticipate that patient will require SNF discharge on day #3/Saturday, discussed this plan with pediatric social worker. VTE Prophylaxis: Other (Lovenox 80 mg daily as ordered by hospitalist service. This will be discontinued as patient is having surgery in a.m.) Resuscitation Status: DNR/DNI:Do Not Resuscitate/Intubate Bao Gonzales PA-C Jun 11, 2016 12:04
--- NOTE | 2016-06-11 15:20 | NUR ---
Evaluation completed. Please go to "Notes" then click on "Assessments and Notes" (bottom left corner of screen). Then select appropriate discipline tab on top of screen.
--- NOTE | 2016-06-11 16:53 | PCM.PNMED ---
Subjective Date of Service Jun 11, 2016 Subjective Patient is feeling better today. He has been moving his legs in bed but has not been out of bed with physical therapy as of yet. He appreciates being on nasal cannula rather than an oxygen mask. He has no new complaints. Exam Vital Signs Vital Sign - Last Date Time Temp Pulse Resp B/P Pulse Ox O2 Delivery O2 Flow Rate FiO2 06/11/16 13:32 36.6 100 16 104/50 92 Nasal Cannula 4.00 Intake and Output 06/10/16 06/10/16 06/11/16 Cumulative From/Thru 15:00 23:00 07:00 06/08/16 17:24 - 06/11/16 06:25 Intake Total 850 ml 660 ml 950 ml 6782 ml Output Total 260 ml 500 ml 675 ml 2750 ml Balance 590 ml 160 ml 275 ml 4032 ml Intake Oral 349 ml 200 ml 1499 ml IV Total 850 ml 311 ml 750 ml 5283 ml Output Urine Total 250 ml 500 ml 675 ml 2740 ml Estimated Blood Loss 10 ml 10 ml # Voids 1 # Bowel Movements 0 0 Exam General: Patient is in no apparent distress on oxygen per nasal cannula. He remains in very good spirits postoperatively. HEENT: Head is atraumatic and normocephalic. Patient has normal male pattern baldness. Eyes: Pupils are equally round and reactive to light and accommodation. Extraocular muscles are intact. Sclera are white, anicteric. Subconjunctival mucosa is pink. Ears and nose are unremarkable. Oropharynx: There is no mucosal lesions, there is no thrush, there is no pharyngitis. Oral mucosa slightly dry. Neck: Is supple, there are no nodes, or masses or tenderness. Chest: Breath sounds are slightly clearer Heart: Rate, rhythm is regular. There is no new murmur, rub or gallop. Abdomen: Good bowel sounds are present. Abdomen is soft, nontender, no organomegaly or masses were appreciated. Extremities: Are well perfused. The left lower extremities roughly 2-3 inches shorter than the right lower extremity. There is no edema, there is no cellulitis, no rash. The left hip dressing is clean dry and intact. Neurologic: There are no focal neurological deficits. Cranial nerves II through XII are intact. There are no sensory or motor deficits. Psychiatric: Patients mood is calm and he shows no sign of agitation. Genital: Deferred Rectal: Deferred Lab and Diagnostics Result Diagram: 06/11/16 0545 06/11/1645 Microbiology Blood cultures are pending X-Rays, CTs and MRIs PROCEDURE: X-RAY CHEST ONE VIEW, PORTABLE ([id number]) INDICATIONS: fever, history of aspiration pneumonia TECHNIQUE: One view of the chest was acquired. COMPARISON: [facility], , CHEST 1 VIEW, 04/07/2016, 15:12. FINDINGS: Surgical changes and devices: None. Lungs and pleura: Lungs are hyperinflated. No pneumothorax is seen. No pleural effusion is seen. No ill-defined areas of scattered increased markings in the periphery of the left lung and possibly inferiorly into right lung. These could be small areas of recurrent pneumonia. Mediastinum: Mediastinal contours appear normal. Heart size is normal. Bones and chest wall: No suspicious bony lesions. Overlying soft tissues appear unremarkable. IMPRESSION: Compared to the chest x-ray in March of 2016 is been significant improvement in the appearance of the infiltrates. Currently there ill-defined patchy areas of density in the periphery of the left lung and possibly right base suggestive of small infiltrates. Assessment & Plan According to Dr. Horton The patient's daughter reported that the patient was hospitalized in March with severe aspiration pneumonia and Fever, he required ICU care and she said they had to give him up to 15 liters of oxygen. Per notes he also had mario esophagitis. Since then he has been at [facility] fdc facility. She was doing so well he was soon to graduate and go back to his assisted living facility. 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 The staff found him lying on the floor on left side complaining of left hip pain. He was seen at [facility] emergency department and transferred here for admission. Upon arrival he was noted to be febrile and is requiring 6 L of oxygen. Daughter notes he has still continued to have a chronic cough at the rehabilitation facility, he was treated with doxycycline on May 16, and apparently also Tamiflu. Daughter thinks his influenza test was positive but rehab notes say he was treated in spite of a negative test. # The patient suffered a left femoral neck fracture after a ground-level fall - The patient was taken to the operating room today by Dr. Moshe Jett and his findings were as follows: "Left hip minimally displaced mid femoral neck fracture satisfactorily pinned in situ with 3 Synthes partially threaded 7.3 mm cannulated screws. Intraoperative fluoroscopic views confirmed no intra-articular penetration from our placed hardware and no further displacement of the femoral neck fracture". # Fever, resolved, most likely is due to recurrent aspiration pneumonia - Obtain serial chest x-rays - Check blood cultures which are negative at 24 hours, and urinalysis is unremarkable - Continue Unasyn - The modified barium swallow showed laryngeal penetration and patient has been placed on the appropriate diet by speech therapy. # Hypoxia likely secondary to above - Treat probable pneumonia as noted above - Oxygen therapy as needed - Resume CPAP at night which he had been on in the recent past - Continue Spiriva - As needed albuterol nebulizer # Dysphagia - Go back on dysphagia diet with thickened liquids - Speech therapy evaluation appreciated - Check modified barium swallow # Chronic atrial fibrillation, now with some increased ventricular response - Most likely due to fever - We will give IV fluid and if does not improve consider medication for rate control - Since Xarelto is being held for hip surgery patient will need to have Xarelto restarted postoperatively at the discretion of orthopedic surgery - Patient has not had an echocardiogram since 2011. Therefore, will order an echocardiogram. # INR of 1.9 at [facility] ED and now normal here at the time of this admission (as noted above is now on Xarelto instead of warfarin and it is being held). # Recent thrush treated at [facility]. - As patient has been placed on broad-spectrum IV antibiotics we will restart empiric treatment with Diflucan. - We will change Diflucan from IV to by mouth postoperatively. Disposition: The patient will need a few days of hospitalization postoperatively prior to being transferred back to rehabilitation. Pain Evaluation: Adequate Pain Control GI Prophylaxis: Proton Pump Inhibitor VTE Prophylaxis: Other (Lovenox 80 mg daily as ordered by hospitalist service. This will be discontinued as patient is having surgery in a.m.) VTE Mechanical Devices: Intermittant Pneumatic CD Resuscitation Status: DNR/DNI:Do Not Resuscitate/Intubate Willi Siddiqui MD Jun 11, 2016 16:53
--- NOTE | 2016-06-11 19:23 | NUR ---
Urination, Pain Soto catheter removed by prior shift. Patient able to void spontaneously without difficulty or pain. Patient reports some pain on and off at surgical site this shift. Pain well controlled with ordered pain medications. Patient denies nausea or other problems. Care is ongoing.
[2016-06-12] VITALS (11 sets, daily range): BP systolic 124–150; BP diastolic 66–85; PULSE 72–103; RESP 16–18; O2SAT 90–94
[2016-06-12] MEDS: Ampicillin-Sulbactam Inj 3,000 MG in 0.9% Sodium Chloride 100 ML IV SCH ×4 (03:33→21:08)
[2016-06-12] MEDS: HYDROcodone-APAP 5-325 mg Tablet PO PRN ×2 (04:39→12:21)
[2016-06-12 05:39] LABS: BASOPHILS % (AUTO) 0.3 % (0-3); EOSINOPHILS % (AUTO) 6.9 % (0-5); MONOCYTES % (AUTO) 8.8 % (4-12); Mean Corpuscular Hemoglobin 30.5 pg (27.0-35.0); Mean Corpuscular Volume 94.3 fL (81-100); NEUTROPHILS % (AUTO) 69.3 % (40-74); Platelet Count 237 bil/L (150-400)
[2016-06-12 06:05] LABS: Magnesium 1.5 mg/dL (1.6-2.6); Phosphorus 2.5 mg/dL (2.5-4.9)
[2016-06-12 06:06] LABS: INR 1.12 ratio
--- NOTE | 2016-06-12 07:17 | NUR ---
Pain Patient states he has very little pain. Patient on 2L O2 via nasal canula at 91%. Patient seems to have some confusion off and on. Tele Afib 98. Patient in bed throughout the night, no attempts to ambulate.Crushed medications with apple sauce.
--- NOTE | 2016-06-12 09:48 | PCM.PNORTH ---
Subjective Date of Service: Jun 12, 2016 Visit Information: Reason for Visit Left Femoral Neck Fracture Surgery/Surgery Date L HIP IN SITU CANNULATED PINNING OF FEMORAL NECK FX Post-Op Day # Date of Admission: Jun 08, 2016 at 15:59 Hospital Day # Subjective Status post day #2 left hip pinning. Patient states he is doing pretty well, has a little bit of achy pain in the hip but otherwise is eating well and happy with outcome. Postop General: No Complaints, No Shortness of Breath, No Chest Pain Objective Exam Objective Patient is alert and oriented 3. Answering questions appropriately. Sitting up in bed and not in any acute distress today. Dressing is clean dry and intact. Patient able to wiggle toes. Calf is soft and nontender, pulses intact, sensation is full. Hemoglobin 10.2, hematocrit 31.5 Vital Signs and I/O Vital Sign - Last Date Time Temp Pulse Resp B/P Pulse Ox O2 Delivery O2 Flow Rate FiO2 06/12/16 08:45 36.4 86 18 133/79 92 Nasal Cannula 2.00 Intake and Output 06/11/16 06/11/16 06/12/16 Cumulative From/Thru 15:00 23:00 07:00 06/08/16 17:24 - 06/12/16 05:56 Intake Total 677 ml 1758 ml 9217 ml Output Total 455 ml 3205 ml Balance 677 ml 1303 ml 6012 ml Intake Oral 677 ml 100 ml 2276 ml IV Total 1658 ml 6941 ml Output Urine Total 455 ml 3195 ml Estimated Blood Loss 10 ml # Voids 3 4 # Bowel Movements 0 0 0 Lab & Micro Results Laboratory Tests Test 06/11/16 10:00 06/12/16 05:10 Prothrombin Time 12.0sec (8.1-12.5) 12.0sec (8.1-12.5) Prothromb Time International Ratio 1.12ratio 1.12ratio White Blood Count 8.9th/mm3 (3.8-10.1) Red Blood Count 3.34mil/mm3 (4.40-5.80) Hemoglobin 10.2g/dL (13.8-17.2) Hematocrit 31.5% (41.0-50.0) Mean Corpuscular Volume 94.3fL (81-100) Mean Corpuscular Hemoglobin 30.5pg (27.0-35.0) Mean Corpuscular Hemoglobin Concent 32.4% (32.0-37.0) Red Cell Distribution Width 14.2% (12.3-15.4) Platelet Count 237bil/L (150-400) Neutrophils (%) (Auto) 69.3% (40-74) Lymphocytes (%) (Auto) 14.1% (14-46) Monocytes (%) (Auto) 8.8% (4-12) Eosinophils (%) (Auto) 6.9% (0-5) Basophils (%) (Auto) 0.3% (0-3) Sodium Level 138mEq/L (134-144) Potassium Level 4.0mEq/L (3.5-5.2) Chloride Level 101mEq/L (97-108) Carbon Dioxide Level 27mmol/L (18-29) Blood Urea Nitrogen 11mg/dL (8-27) Creatinine 0.57mg/dL (0.76-1.27) Estimat Glomerular Filtration Rate 143mL/min (>59) Glucose Level 115mg/dL (60-99) Calcium Level 8.3mg/dL (8.5-10.1) Phosphorus Level 2.5mg/dL (2.5-4.9) Magnesium Level 1.5mg/dL (1.6-2.6) Total Bilirubin 0.3mg/dL (0.0-1.2) Aspartate Amino Transf (AST/SGOT) 15U/L (0-50) Alanine Aminotransferase (ALT/SGPT) 10U/L (0-44) Alkaline Phosphatase 83U/L (25-160) Total Protein 5.4g/dL (6.4-8.4) Albumin 2.5g/dL (3.4-5.0) Prealbumin 8mg/dL (20-40) Microbiology 06/08/16 Blood Culture - Preliminary, Resulted No growth at 2 days; culture examined... Result Diagram: 06/12/1650906/12/16509 Catheters: Urethral 2 Way [place] Assessment & Plan Impression Status post day #2 left hip pinning. Patient doing well, labs appear stable at 10.2 hemoglobin and 31.5 hematocrit. Problems: Plan Patient will work with physical therapy while here in the hospital to move to bedside chair and out of bed assist. Patient will remain toe-touch weightbearing only for 6 weeks. Patient will continue Lovenox 40 mg subcutaneous daily for 14 days, then aspirin 325 mg by mouth twice a day for 4 more weeks for DVT prophylaxis. Dressing changed today. Incision was clean, no discharge, no erythema. Thank you to hospitalist team for managing this patient's other medical conditions. Anticipate that patient will require SNF discharge tomorrow day #3/Saturday as long as patient is otherwise medically stable, discussed this plan with psychotherapist social worker. VTE Prophylaxis: Other (Lovenox 80 mg daily as ordered by hospitalist service. This will be discontinued as patient is having surgery in a.m.) Resuscitation Status: DNR/DNI:Do Not Resuscitate/Intubate Bao Gonzales PA-C Jun 12, 2016 09:47
[2016-06-12] MEDS: Fluticasone 0.05% 15 Spray/2 Gm 16 Gm Nasal Spray NASAL SCH (10:09)
[2016-06-12] MEDS: Lactated Ringer's 1,000 ML IV SCH ×2 (10:09→21:25)
[2016-06-12] MEDS: Pantoprazole 4 mg/mL 10 mL Inj IVPUSH SCH (10:09)
[2016-06-12] MEDS: Tiotropium 18mcg/Cap 5 Capsule Inhaler Kit INHALATION SCH (10:10)
[2016-06-12] MEDS: Venlafaxine XR 75 mg ER24 Capsule PO SCH (10:10)
--- NOTE | 2016-06-12 11:57 | NUR ---
Called and left message on admission phone [phone] and let them know patient will be ready for discharge tomorrow. I asked for call back on my cell for confirmation of this notice. Updated [employer]PER[employer] LICENSE OFFICER
--- NOTE | 2016-06-12 12:07 | ST BAR ---
[address] [address] SPEECH BARIUM SWALLOW STUDY PATIENT: BRITTNEY PALAFOX : 1930 MR#: [id number] ADMIT: 06/08/2016 JOB ID: [id number] DATE OF SERVICE: 06/11/2016 THERAPIST: Aisha Jimenez MS, CCC-COOKING SHOW HOST REFERRING PHYSICIAN: Willi Siddiqui [id number] G CODES AND MODIFIERS: [id number], [id number]. START OF CARE DATE: 06/08/2016 VISITS FROM START OF CARE: 1 FURTHER THERAPY RECOMMENDED: Further therapy is recommended while patient is at [facility] inpatient, as well as potential for continued rehab at his prior level of function at the [facility] in [place]. PATIENT GOALS: To swallow without coughing. SHORT-TERM GOALS: 1. The patient will participate in laryngeal strengthening exercises to increase laryngeal elevation and excursion to increase clearance of bolus through the pharynx. 2. The patient will tolerate a nectar dysphagia mechanical diet without signs and symptoms of aspiration secondary to increased fatigue. LONG-TERM GOALS: Patient will safely tolerate least restrictive diet without signs and symptoms of aspiration. PLAN: Inpatient speech therapy focusing on laryngeal strengthening exercises, diet trials to upgrade as possible to a dysphagia mechanical diet, and ongoing education regarding the speech and swallowing mechanism. CURRENT RELEVANT HISTORY: This patient was admitted to [facility] on June 08, 2016 secondary to a ground level fall at the [facility] long-term facility. The patient has a history of severe aspiration pneumonia and fever in March of 2016. The patient was on an altered diet and nectar dysphagia mechanical diet up until approximately three weeks ago where he was returned back to a thin regular diet. The patient underwent a left hip pinning with cannulated screws for pinning of the femoral neck fracture in his left hip. He was seen by speech therapy inpatient and noted to have delayed swallow activation and signs and symptoms of aspiration with all trials with the exception of honey thick liquids with a chin tuck. The patient was placed on honey thick liquids, full liquid diet with meds crushed in applesauce. No straws until this modified barium swallow study today. PAST MEDICAL HISTORY: Significant for dementia, Nicanor esophagitis, and significant weight loss recently. This patient also had a modified barium swallow at this hospital in 2012, at which time a soft thin diet was recommended. MEDICAL NECESSITY: Aspiration risk. PRIOR LEVEL OF FUNCTION: The patient was independent at his long-term facility, however has a history of severe dysphagia with a nectar dysphagia mechanical solid diet up until three weeks ago where he was increased to a thin regular diet at this facility. The patient's most recent chest x-ray on June 08, 2016 noted patchy areas of density in the left lung and right lung base suggestive of small infiltrates which may be consistent with a recurrent pneumonia. RELEVANT HOSPITALIZATIONS: Patient is currently hospitalized at [facility] and was previously hospitalized at [facility] in March 2016 secondary to severe aspiration pneumonia. FUNCTIONAL LIMITATIONS: Altered diet and aspiration risk. BASELINE TESTS AND MEASURES: The patient was seated and viewed laterally for this modified barium swallow study today completed in conjunction with Radiology. The following textures were presented: Thin, nectar, honey, pureed, dysphagia mechanical, the barium pill. Oral motor sensory evaluation: Patient has full dentures with good strength and range of motion for lingual and labial movements. No asymmetry noted. Oral phase: Oral phase was significant for slow mastication of the dysphagia mechanical solid bolus. Patient noted to have pre-spillage over the base of the tongue to the level of the vallecula with all proffered substances today. Pharyngeal phase: Laryngeal excursion was decreased, and laryngeal elevation was decreased with all substances presented. The patient noted to have residue in the anterior wall of the pharynx with all substances, as well as pooling in the vallecula. This vallecula residue clears with a followup swallow. No piriform sinus residue or pooling noted. .Flash penetration to the level of the vocal cords noted with multiple sips of thin, especially as study continued. Patient did not demonstrate any cough but was instructed to cough by this clinician, cough, clear, re-swallow. Aspiration: No. Aspiration was not seen in this study. However, the patient continues to be at high risk for aspiration given pooling in the vallecula, decreased laryngeal elevation and excursion, and flash penetration with thin seen in this study. Esophageal phase: Please see radiologist's report for further details. A barium tablet was given to this patient and passed quickly through the oral and pharyngeal phase and into the esophagus. No difficulty with cricopharyngeal relaxation was noted. No complaints of reflux or food or pill becoming stuck in his throat. This patient's aspiration risk is moderate. DIET TEXTURE RECOMMENDATIONS: It is recommended this patient begin a nectar/pureed diet with one dysphagia mechanical item secondary to difficulty with fatiguing swallow over time. It is recommended this patient utilize a chin tuck as instructed in his bedside swallow and is noted to be ineffective to dilate the vallecula and decrease the likelihood of spillover flash penetration. EVALUATION RESULTS: This is a very pleasant 86-year-old male seen for an initial inpatient modified barium swallow study today to determine safety of p.o. intake. This patient presented with a moderate oropharyngeal dysphagia characterized by decreased mastication with increased time, delayed swallow reflex, pre-spillage of the bolus into the level of the vallecula, residue after the swallow, flash penetration with thin liquids, and decreased strength of swallow over time and decreased laryngeal elevation and excursion. Flash penetration was noted with thin x1 in the study today. However, his risk remains moderate secondary to decreased overall strength of swallow. His risk was significantly reduced with cuing for chin tuck as well as a hard fast swallow ongoing throughout this session. It is recommended patient complete laryngeal strengthening exercises in order to increase elevation and excursion and overall pharyngeal constriction to clear the bolus through the pharynx safely and decrease overall risk of aspiration. The results of this evaluation were reviewed with this patient as well as discussed with the RN. Following this study today, the patient was in agreement with all recommendations and will follow up with treatment while in [facility] and when he returns to his care facility. Thank you for this referral today [facility] CENTERCriss
--- NOTE | 2016-06-12 13:15 | DRSVH ---
[facility] [address] [place] [address] Echocardiogram Report Name: BRITTNEY PALAFOX HStudy Date : 06/12/2016 Height: 71 in Hospital Exam Location: [facility] Weight: 179 lb Gender: Male BSA: 2.0 m2 : 1930 Age: 86 yrs BP: 136/71 mmHg Reason For Study: Atrial fibrillation Ordering Physician: Performed By: Claudia Van Referring Physician: Angel Stock Interpretation Summary The left ventricle is normal in size. The ejection fraction is estimated to be 55-60%. There is mild mitral regurgitation. There is mild aortic regurgitation. There is mild tricuspid regurgitation. The right ventricular systolic pressure is estimated at 46 mmHg assuming a right atrial pressure of 8 mm Hg. Procedure: A two-dimensional transthoracic echocardiogram with color flow and Doppler was performed. The study quality was technically adequate. Comparison is made with the echocardiogram of 07-16-11. The patient was in atrial fibrillation with heart rates between 77-95 bpm during the exam. Left Ventricle: The left ventricle is normal in size. There is normal left ventricular wall thickness. The ejection fraction is estimated to be 55-60%. Diastolic function could not be accurately assessed due to atrial fibrillation. Right Ventricle: The right ventricle is normal in size and function. Atria: The left atrium is severely dilated. The right atrium is severely dilated. The interatrial septum is intact with no evidence for an atrial septal defect. Mitral Valve: The mitral valve leaflets appear mildly thickened, but open well. There is mild mitral regurgitation. Aortic Valve: The aortic valve is trileaflet. The aortic valve opens well. There is mild aortic regurgitation. Tricuspid Valve: The tricuspid valve is not well visualized, but is grossly normal. There is mild tricuspid regurgitation. The right ventricular systolic pressure is estimated at 46 mmHg assuming a right atrial pressure of 8 mm Hg. Pulmonic Valve: The pulmonic valve is not well seen, but is grossly normal. There is trace pulmonic regurgitation. Great Vessels: The aortic root is normal size. The IVC is dilated (diameter is greater than 2.1 cm) yet it collapses greater than 50% with a sniff. This suggests a right atrial pressure of 8 mm Hg. Pericardium/ Pleura There is no pericardial effusion. There is no pleural effusion. MMode/2D Measurements & Calculations LVIDd: 5.1 cm LA dimension: 4.3 cm RA long axis Ao root diam LVIDs: 3.0 cm FS: 42.0 % LA A2 area: 33.9 cm RA area Aortic Jxn: 3.0 cm IVSd: 0.89 cm LA A4 area: 30.0 cm Ao Arch Diam (Prox LVPWd: 1.1 cm LA length (vol) : 28.7 cm Trans): 3.1 cm RA vol LA vol: 121.2 ml : 107.ml LA vol index RA : 53.6 mm/ RVDd major IVC diam: 2.5 cm : 7.0 cm LV allen. diameter/BSA LV sys. diameter/BSA RVD1 (basal) RVD2 (mid): 3.7 cm (cm/m^2): 2.5 (cm/m^2): 1.5 Doppler Measurements & Calculations Ao V2 max MV P1/2t: 63.8 msec Med Peak E' Shahid TR max shahid : 120.9 cm/sec : 308.5 cm/sec Ao max PG Lat Peak E' Shahid TR max PG : 5.8 mmHg : 12.6 cm/sec : 38.1 mmHg Ao mean PG PA V2 max : 3.3 mmHg : 74.1 cm/sec PA mean PG PA Accel Time : 0.13 sec MV V2 mean MV P1/2t max shahid Ao V2 mean PA V2 mean : 58.9 cm/sec : 85.8 cm/sec : 48.4 cm/sec MV mean PG MVA(P1/2t): 3.4 cm2 Ao V2 VTI: 22.8 cm MV V2 VTI : 17.3 cm Electronically signed by: Bryant Kaur on Reading Physician:06/12/2016 01:14 PM
[2016-06-12] MEDS ORDERED: 0.9% Sodium Chloride 100 ML ONE (14:34)
--- NOTE | 2016-06-12 19:21 | NUR ---
Pain Patient reported 8 hip. 1 tab of [place] given. Patient denies nausea at this time. Patient turned every two hours for comfort. Call light and tray table within reach. Will continue to monitor patient hourly.
--- NOTE | 2016-06-12 20:55 | PCM.PNMED ---
Subjective Date of Service Jun 12, 2016 Subjective The patient is in good spirits and has no new complaints. However he was not able to stand from a short period time with physical therapy and then went right back to bed. He has no new complaints and is breathing easier. Exam Vital Signs Vital Sign - Last Date Time Temp Pulse Resp B/P Pulse Ox O2 Delivery O2 Flow Rate FiO2 06/12/16 19:47 36.5 86 17 144/76 92 Nasal Cannula 2.00 Intake and Output 06/11/16 06/11/16 06/12/16 Cumulative From/Thru 15:00 23:00 07:00 06/08/16 17:24 - 06/12/16 05:56 Intake Total 677 ml 1758 ml 9217 ml Output Total 455 ml 3205 ml Balance 677 ml 1303 ml 6012 ml Intake Oral 677 ml 100 ml 2276 ml IV Total 1658 ml 6941 ml Output Urine Total 455 ml 3195 ml Estimated Blood Loss 10 ml # Voids 3 4 # Bowel Movements 0 0 0 Exam General: Patient is in no apparent distress on oxygen per nasal cannula. He remains in very good spirits postoperatively. HEENT: Head is atraumatic and normocephalic. Patient has normal male pattern baldness. Eyes: Pupils are equally round and reactive to light and accommodation. Extraocular muscles are intact. Sclera are white, anicteric. Subconjunctival mucosa is pink. Ears and nose are unremarkable. Oropharynx: There is no mucosal lesions, there is no thrush, there is no pharyngitis. Oral mucosa slightly dry. Neck: Is supple, there are no nodes, or masses or tenderness. Chest: Breath sounds are slightly clearer. Heart: Rate, rhythm is regular. There is no new murmur, rub or gallop. Abdomen: Good bowel sounds are present. Abdomen is soft, nontender, no organomegaly or masses were appreciated. Extremities: Are well perfused. The left lower extremities roughly 2-3 inches shorter than the right lower extremity. There is no edema, there is no cellulitis, no rash. The left hip dressing is clean dry and intact. Neurologic: There are no focal neurological deficits. Cranial nerves II through XII are intact. There are no sensory or motor deficits. Psychiatric: Patients mood is calm and he shows no sign of agitation. Genital: Deferred Rectal: Deferred Lab and Diagnostics Result Diagram: 06/12/16 0510 06/12/16 0510 Microbiology Blood cultures are pending X-Rays, CTs and MRIs PROCEDURE: X-RAY CHEST ONE VIEW, PORTABLE ([id number]) INDICATIONS: fever, history of aspiration pneumonia TECHNIQUE: One view of the chest was acquired. COMPARISON: [facility], CHEST 1 VIEW, 04/07/2016, 15:12. FINDINGS: Surgical changes and devices: None. Lungs and pleura: Lungs are hyperinflated. No pneumothorax is seen. No pleural effusion is seen. No ill-defined areas of scattered increased markings in the periphery of the left lung and possibly inferiorly into right lung. These could be small areas of recurrent pneumonia. Mediastinum: Mediastinal contours appear normal. Heart size is normal. Bones and chest wall: No suspicious bony lesions. Overlying soft tissues appear unremarkable. IMPRESSION: Compared to the chest x-ray in March of 2016 is been significant improvement in the appearance of the infiltrates. Currently there ill-defined patchy areas of density in the periphery of the left lung and possibly right base suggestive of small infiltrates. Cardiac Echo Impressions Echocardiogram Report Name: BRITTENY PALAFOX HStudy Date : 06/12/2016 Height: 71 in Hospital Exam Location: [facility] Weight: 179 lb Gender: Male BSA: 2.0 m2 : 1930 Age: 86 yrs BP: 136/71 mmHg Reason For Study: Atrial fibrillation Ordering Physician: Performed By: Claudia Van Referring Physician: Angel Stock Interpretation Summary The left ventricle is normal in size. The ejection fraction is estimated to be 55-60%. There is mild mitral regurgitation. There is mild aortic regurgitation. There is mild tricuspid regurgitation. The right ventricular systolic pressure is estimated at 46 mmHg assuming a right atrial pressure of 8 mm Hg. Assessment & Plan According to Dr. Horton The patient's daughter reported that the patient was hospitalized in March with severe aspiration pneumonia and Fever, he required ICU care and she said they had to give him up to 15 liters of oxygen. Per notes he also had mario esophagitis. Since then he has been at [facility] senior care facility. H was doing so well he was soon to graduate and go back to his assisted living facility. It is reported that he was sitting on the bed when he dropped his pen and when he reached to berry picker he fell landing on his left hip. The staff found him lying on the floor on left side complaining of left hip pain. He was seen at [facility] emergency department and transferred here for admission. Upon arrival he was noted to be febrile and is requiring 6 L of oxygen. Daughter notes he has still continued to have a chronic cough at the rehabilitation facility, he was treated with doxycycline on May 16, and apparently also Tamiflu. Daughter thinks his influenza test was positive but rehab notes say he was treated in spite of a negative test. # The patient suffered a left femoral neck fracture after a ground-level fall - The patient was taken to the operating room today by Dr. Moshe Jett and his findings were as follows: "Left hip minimally displaced mid femoral neck fracture satisfactorily pinned in situ with 3 Synthes partially threaded 7.3 mm cannulated screws. Intraoperative fluoroscopic views confirmed no intra-articular penetration from our placed hardware and no further displacement of the femoral neck fracture". # Fever, resolved, most likely is due to recurrent aspiration pneumonia - Obtain serial chest x-rays - Check blood cultures which are negative at 24 hours, and urinalysis is unremarkable - Continue Unasyn - The modified barium swallow showed laryngeal penetration and patient has been placed on the appropriate diet by speech therapy. # Hypoxia likely secondary to above - Treat probable pneumonia as noted above - Oxygen therapy as needed - Resume CPAP at night which he had been on in the recent past - Continue Spiriva - As needed albuterol nebulizer - We will check repeat chest x-ray in a.m. # Dysphagia - Patient is to go back on dysphagia diet with thickened liquids - Speech therapy evaluation appreciated - Modified barium swallow confirms suspicion of laryngeal penetration # Chronic atrial fibrillation, now with some increased ventricular response - Most likely due to fever - We will give IV fluid and if does not improve consider medication for rate control - Since Xarelto is being held for hip surgery patient will need to have Xarelto restarted postoperatively at the discretion of orthopedic surgery - Patient has not had an echocardiogram since 2011. Therefore, we ordered an echocardiogram. # INR of 1.9 at [facility] ED and now normal here at the time of this admission. Patient is to restart Xarelto postoperatively # Recent thrush treated at [facility]. - As patient has been placed on broad-spectrum IV antibiotics we will restart empiric treatment with Diflucan. - We have changed Diflucan from IV to by mouth postoperatively and will continue. Disposition: The patient will likely be transferred back to rehabilitation tomorrow if stable.. Pain Evaluation: Adequate Pain Control GI Prophylaxis: Proton Pump Inhibitor VTE Prophylaxis: Other (Lovenox 80 mg daily as ordered by hospitalist service. This will be discontinued as patient is having surgery in a.m.) VTE Mechanical Devices: Intermittant Pneumatic CD Resuscitation Status: DNR/DNI:Do Not Resuscitate/Intubate Willi Siddiqui MD Jun 12, 2016 20:55
--- NOTE | 2016-06-13 01:28 | NUR ---
O2 Saturation Patient on 1L O2 NC at 92%. Patient for the most part A&O, but has some confusion at times. Patient using urinal at bedside to void. Patient states he currently doesn't need any medication for pain. Dressing on hip clean dry and intact.
[2016-06-13] MEDS: Ampicillin-Sulbactam Inj 3,000 MG in 0.9% Sodium Chloride 100 ML IV SCH ×3 (03:21→14:30)
[2016-06-13 05:49] VITALS: BP 151/86; PULSE 82; RESP 17; O2SAT 92
--- NOTE | 2016-06-13 06:46 | PCM.PNORTH ---
Subjective Date of Service: Jun 13, 2016 Visit Information: Reason for Visit Left Femoral Neck Fracture Surgery/Surgery Date L HIP IN SITU CANNULATED PINNING OF FEMORAL NECK FX Post-Op Day # Date of Admission: Jun 08, 2016 at 15:59 Hospital Day # Subjective Found patient sleeping this morning well positioned and easily awakened. Briefly discussed orthopedic sign off this morning and likely discharge to [facility] for some period of time for rehabilitation and mobility. Patient is pleasant and responds to commands and questions. Postop General: No Complaints, No Shortness of Breath, No Chest Pain Pain Management: PO Objective Exam Objective Alert and oriented to person and place and pleasant. Postoperative dressing is clean dry and intact. No significant ecchymosis or swelling about the surgery site Calf and thigh are soft and nontender Toe wiggle and sensation are intact at the left lower extremity distally SCDs are in place JASVIR hose are absent Soto is absent Vital Signs and I/O Vital Sign - Last Date Time Temp Pulse Resp B/P Pulse Ox O2 Delivery O2 Flow Rate FiO2 06/13/16 05:49 36.4 82 17 151/86 92 Nasal Cannula 2.00 Intake and Output 06/12/16 06/12/16 06/13/16 Cumulative From/Thru 15:00 23:00 07:00 06/08/16 17:24 - 06/13/16 05:47 Intake Total 444 ml 400 ml 836 ml 73140 ml Output Total 325 ml 400 ml 3930 ml Balance 444 ml 75 ml 436 ml 6967 ml Intake Oral 400 ml 100 ml 2776 ml IV Total 444 ml 736 ml 8121 ml Output Urine Total 325 ml 400 ml 3920 ml Estimated Blood Loss 10 ml # Voids 4 # Bowel Movements 0 0 Lab & Micro Results Microbiology 06/08/16 Blood Culture - Preliminary, Resulted No growth at 2 days; culture examined... Result Diagram: 06/12/16 0510 06/12/16 0510 General Appearance: Alert, Cooperative, No Acute Distress Extremities: No Compartment Syndrom Noted, Thigh & Calf Soft/Nontender Postop Sensory Motor: Distal Motor Intact, Movement in Toes, Distal Sensation Intact Activity: Activity per PT, Ambulate with PT (touchdown weightbearing on the left lower extremity using a front-wheeled walker 6 weeks postop.) Catheters: None Assessment & Plan Impression Patient is a 86-year-old very pleasant gentleman who is undergone a left cannulated screw fixation of his left hip. Patient is slow to mobilize and has not accomplished any significant gait since surgery. He otherwise appears well and has improved in his general health since arrival. Problems: Plan Postop day #3 from left hip cannulated screw fixation performed on 06/10/[address] Moshe Jett. Touchdown weightbearing at the left lower extremity using a front-wheeled walker 6 weeks postop Continue formal physical therapy for mobility, gait and safety. Continue anticoagulation per hospitalist service as appropriate for atrial fibrillation and postoperative DVT prophylaxis. Continue by mouth pain control with N[place]un[place] 5 mg. Postoperative dressing is clean dry and intact and may be changed when soiled or loosened. Amrik or sutures may be removed on postoperative day #12 at [facility] facility. Follow-up at [facility] orthopedic clinic with mid level provider at 2 weeks postop for wound check. Follow-up at [facility] orthopedic clinic at [address] Moshe Jett with AP pelvis and left crosstable lateral hip x-rays on arrival. Orthopedics thanks hospitalist service for their help in the medical management of this patient. Orthopedics will sign off on this patient this morning but as always we will remain available for consultation or treatment. Anticipated discharge to [facility] facility by hospitalist service today on postop day 3, 06/13/2016 or when determined to be medically appropriate by hospitalist service. VTE Prophylaxis: Other (Xarelto 20mg as per hospitalist service for anticoagulation and DVT prophylaxis.) Resuscitation Status: DNR/DNI:Do Not Resuscitate/Intubate Rafael Kulkarni PA-C Jun 13, 2016 06:46
[2016-06-13 07:01] LABS: BASOPHILS % (AUTO) 0.2 % (0-3); EOSINOPHILS % (AUTO) 5.7 % (0-5); Mean Corpuscular Hemoglobin 30.5 pg (27.0-35.0); NEUTROPHILS % (AUTO) 68.9 % (40-74); Platelet Count 282 bil/L (150-400)
[2016-06-13 07:06] LABS: INR 1.14 ratio
[2016-06-13 07:31] LABS: Magnesium 1.4 mg/dL (1.6-2.6)
[2016-06-13] MEDS ORDERED: 0.9% Sodium Chloride 100 ML ONE (07:55)
[2016-06-13] MEDS: Venlafaxine XR 75 mg ER24 Capsule PO SCH (07:56)
[2016-06-13] MEDS: Tiotropium 18mcg/Cap 5 Capsule Inhaler Kit INHALATION SCH (08:00)
[2016-06-13] MEDS: Fluticasone 0.05% 15 Spray/2 Gm 16 Gm Nasal Spray NASAL SCH (08:00)
[2016-06-13] MEDS: Pantoprazole 4 mg/mL 10 mL Inj IVPUSH SCH (08:16)
[2016-06-13] MEDS ORDERED: Magnesium Sulf 4 Gm/100 mL H2O 4 GM in IV Premix 1 EACH IV ONE (08:45)
[2016-06-13] MEDS: HYDROcodone-APAP 5-325 mg Tablet PO PRN ×2 (08:46→14:48)
--- NOTE | 2016-06-13 09:37 | NUR ---
[facility] Signed [id number]
[2016-06-13 10:00] VITALS: BP 127/76; PULSE 98; RESP 18; O2SAT 92
[2016-06-13 10:06] VITALS: PULSE 90
--- NOTE | 2016-06-13 10:42 | DRSVH ---
PROCEDURE: X-RAY CHEST ONE VIEW, PORTABLE ([id number]) INDICATIONS: Follow up for aspiration Pneumonia TECHNIQUE: One view of the chest was acquired. COMPARISON: [facility], CR, CHEST 1 VIEW, 04/07/2016, 15:12. [facility], CR, XR CH EST 1VW (PORTABLE), 06/08/2016, 17:48. FINDINGS: Surgical changes and devices: None. Lungs and pleura: Interval increase in patchy airspace opacity within the left lung base otherwise in terstitium is prominent similar to prior examination. Mediastinum: Mediastinal contours appear normal. Heart size is normal. Bones and chest wall: No suspicious bony lesions. Overlying soft tissues appear unremarkable. IMPRESSION: Prominent interstitium redemonstrated and interval increase in airspace opacity within th e left lung base suspicious for aspiration or pneumonia. Short interval followup is recommended with resolution of the patient's symptoms to ensure there is n o underlying pulmonary pathology. Dictated by: Dashawn MCARTHUR Interpreted: Lakeisha Cee MD on 06/13/2016 at 10:40 Transcribed by: ELDER on 06/13/2016 at 10:42 Approved by: Lakeisha Cee M.D. on 06/13/2016 at 17:01
[2016-06-13] MEDS: Lactated Ringer's 1,000 ML IV SCH (10:45)
--- NOTE | 2016-06-13 11:20 | PCM.DIMED ---
Discharge Instructions Date of Service Jun 13, 2016 Dates of Hospitalization Jun 08, 2016 at 15:59 Discharge Diagnosis Discharge Diagnosis Left hip fracture Diet Heart Healthy Activity Other (No weight bearing left lower extremity for six weeks) Patient Instructions Follow-up Provider: Angel Stock MD Follow-up with PCP in: 1 week Provider: Moshe Jett MD Follow-up in: 1 week (For Orthopedic follow up) Willi Siddiqui MD Jun 13, 2016 11:20
[2016-06-13] MEDS ORDERED: Acetaminophen PO (11:25)
[2016-06-13] MEDS ORDERED: AMOX-366 PO (11:25)
[2016-06-13] MEDS ORDERED: HYDR-4003 PO (11:25)
[2016-06-13] MEDS ORDERED: Magnesium Sulf 2 Gm/50mL Water 2 GM in IV Premix 1 EACH IV ONE (12:00)
--- NOTE | 2016-06-13 12:09 | NUR ---
Arranged BLS for 1400 via [facility]. Updated UDAY Addendum: 06/13/16 at 1229 by SOHA VELASQUEZ RN requested transport be switched to 1500. SW called [facility] and switched time. UDAY Lynch
--- NOTE | 2016-06-13 13:00 | NUR ---
Social Work- Readiness for Discharge Data: EMR Reviewed. Pt is on day 5 of hospitalization for left femoral neck fracture per H&P. PT continues to recommend SNF via BLS. JEEVAN received call from maite Reich at [facility], informing SW that pt requires Doc to Doc report. JEEVAN contacted MD Siddiqui, informing him of this. Pt to discharge back to [facility], JEEVAN continues to follow. Assessment: Pt who would benefit from SNF. Plan: PT recommending SNF via BLS. Pt to discharge back to [facility], JEEVAN continues to follow. Carla Lemus MANAGEMENT CONSULTANT
--- NOTE | 2016-06-13 13:20 | NUR ---
Social Work- Discharge Data: EMR reviewed. Pt is on day 5 of hospitalization for left femoral neck fracture per H&P. Pt is medically stable, pt to discharge today. PT continues to recommend SNF via BLS. Pt to discharge to [facility] JEEVAN spoke with Rachana, admissions [phone], who is agreeable to accepting pt today. UR Specialist set up transportation via [facility] at 1500 pm. UR specialist created packet and faxed orders. JEEVAN updated pt and daughter at bedside and informed nurse TJ of discharge. RN, UC, pt/family and [facility] all updated and agreeable to plan. Assessment: Pt who would benefit from SNF. Plan: Pt to discharge to [facility] via BLS at 1500. RN, UC, pt/family and [facility] all updated and agreeable to plan. Carla Lemus, WATER SERVICE SUPERVISOR
--- NOTE | 2016-06-13 13:25 | PCM.PNORTH ---
Subjective Date of Service: Jun 13, 2016 Visit Information: Reason for Visit Left Femoral Neck Fracture Surgery/Surgery Date L HIP IN SITU CANNULATED PINNING OF FEMORAL NECK FX Post-Op Day # Date of Admission: Jun 08, 2016 at 15:59 Hospital Day # Subjective Patient denies left hip pain. Minimal mobilization to date as the patient is unable to completely comply with weightbearing restrictions. Postop General: No Complaints, No Shortness of Breath, No Chest Pain Pain Management: PO Objective Exam Vital Signs and I/O Vital Sign - Last Date Time Temp Pulse Resp B/P Pulse Ox O2 Delivery O2 Flow Rate FiO2 06/13/16 10:06 90 06/13/16 10:00 Supplement Oxygen 06/13/16 10:00 36.6 18 127/76 92 1.00 Intake and Output 06/12/16 06/12/16 06/13/16 Cumulative From/Thru 15:00 23:00 07:00 06/08/16 17:24 - 06/13/16 05:47 Intake Total 444 ml 400 ml 836 ml 49506 ml Output Total 325 ml 400 ml 3930 ml Balance 444 ml 75 ml 436 ml 6967 ml Intake Oral 400 ml 100 ml 2776 ml IV Total 444 ml 736 ml 8121 ml Output Urine Total 325 ml 400 ml 3920 ml Estimated Blood Loss 10 ml # Voids 4 # Bowel Movements 0 0 Lab & Micro Results Laboratory Tests Test 06/13/16 05:36 White Blood Count 9.3th/mm3 (3.8-10.1) Red Blood Count 3.34mil/mm3 (4.40-5.80) Hemoglobin 10.2g/dL (13.8-17.2) Hematocrit 31.4% (41.0-50.0) Mean Corpuscular Volume 94.0fL (81-100) Mean Corpuscular Hemoglobin 30.5pg (27.0-35.0) Mean Corpuscular Hemoglobin Concent 32.5% (32.0-37.0) Red Cell Distribution Width 14.4% (12.3-15.4) Platelet Count 282bil/L (150-400) Neutrophils (%) (Auto) 68.9% (40-74) Lymphocytes (%) (Auto) 14.3% (14-46) Monocytes (%) (Auto) 10.0% (4-12) Eosinophils (%) (Auto) 5.7% (0-5) Basophils (%) (Auto) 0.2% (0-3) Prothrombin Time 12.2sec (8.1-12.5) Prothromb Time International Ratio 1.14ratio Sodium Level 137mEq/L (134-144) Potassium Level 4.2mEq/L (3.5-5.2) Chloride Level 98mEq/L (97-108) Carbon Dioxide Level 29mmol/L (18-29) Blood Urea Nitrogen 11mg/dL (8-27) Creatinine 0.62mg/dL (0.76-1.27) Estimat Glomerular Filtration Rate 130mL/min (>59) Glucose Level 102mg/dL (60-99) Calcium Level 8.4mg/dL (8.5-10.1) Magnesium Level 1.4mg/dL (1.6-2.6) Total Bilirubin 0.3mg/dL (0.0-1.2) Aspartate Amino Transf (AST/SGOT) 16U/L (0-50) Alanine Aminotransferase (ALT/SGPT) 12U/L (0-44) Alkaline Phosphatase 89U/L (25-160) Total Protein 5.5g/dL (6.4-8.4) Albumin 2.4g/dL (3.4-5.0) Microbiology 06/08/16 Blood Culture - Preliminary, Resulted No growth at 2 days; culture examined... Result Diagram: 06/13/1636 06/13/16 0536 Extremities: Distal Pulses Palpable, No Edema, Other (left lower extremity no deformity. Dressing intact.) Activity: Activity per PT, Ambulate with PT (touchdown weightbearing on the left lower extremity using a front-wheeled walker 6 weeks postop.) Catheters: None Assessment & Plan Impression Postoperative day 3 left hip pinning surgically stabilizing Problems: Plan The patient will be restricted to touchdown weightbearing to left lower extremity for the first 6 weeks postop. He may discharge to halfway facility when he is medically stable. Repeated follow-up as an outpatient within 2 weeks postop. Skin simon can be removed on or after postoperative day #12 halfway facility. VTE Prophylaxis: Other (Xarelto 20mg as per hospitalist service for anticoagulation and DVT prophylaxis.) Resuscitation Status: DNR/DNI:Do Not Resuscitate/Intubate Moshe Jett MD Jun 13, 2016 13:24
[2016-06-13 13:53] VITALS: BP 115/67; PULSE 91; RESP 18; O2SAT 94
--- NOTE | 2016-06-13 15:39 | NUR ---
Discharge Patient discharged to [facility] in [place]. Polk given to patient 30 minutes before transfer. IV DC'd by nursing administrator and intact. Patient transferred from bed to stretcher. Patient transferred transferred with some discomfort. Report called to Elizabeth. Daughter gathered all patient's belongings.
--- NOTE | 2016-06-13 23:20 | PCM.DC.MED ---
Discharge Summary Date of Service Jun 13, 2016 Dates of Hospitalization Date of Hospital Admission Jun 08, 2016 at 15:59 Date of Discharge: Jun 13, 2016 Providers: Admitting Physician: Sasha Horton MD Primary Care Physician: Papo Eagle MD Attending Physician: Sasha Horton MD Diagnosis at Time of Discharge Diagnosis at Time of Discharge Left hip fracture Consultations Orthopedic surgeon Dr. Moshe Jett Procedures XRay, CTs & MRIs PROCEDURE: X-RAY CHEST ONE VIEW, PORTABLE ([id number]) INDICATIONS: fever, history of aspiration pneumonia TECHNIQUE: One view of the chest was acquired. COMPARISON: [facility], CHEST 1 VIEW, 04/07/2016, 15:12. FINDINGS: Surgical changes and devices: None. Lungs and pleura: Lungs are hyperinflated. No pneumothorax is seen. No pleural effusion is seen. No ill-defined areas of scattered increased markings in the periphery of the left lung and possibly inferiorly into right lung. These could be small areas of recurrent pneumonia. Mediastinum: Mediastinal contours appear normal. Heart size is normal. Bones and chest wall: No suspicious bony lesions. Overlying soft tissues appear unremarkable. IMPRESSION: Compared to the chest x-ray in March of 2016 is been significant improvement in the appearance of the infiltrates. Currently there ill-defined patchy areas of density in the periphery of the left lung and possibly right base suggestive of small infiltrates. Cardiac Echo Impression Echocardiogram Report Name: BRITTNEY PALAFOX HStudy Date : 06/12/2016 Height: 71 in Hospital Exam Location: [facility] Weight: 179 lb Gender: Male BSA: 2.0 m2 : 1930 Age: 86 yrs BP: 136/71 mmHg Reason For Study: Atrial fibrillation Ordering Physician: Performed By: Claudia Van Referring Physician: Angel Stock Interpretation Summary The left ventricle is normal in size. The ejection fraction is estimated to be 55-60%. There is mild mitral regurgitation. There is mild aortic regurgitation. There is mild tricuspid regurgitation. The right ventricular systolic pressure is estimated at 46 mmHg assuming a right atrial pressure of 8 mm Hg. Brief History The patient is an 86-year-old pleasant white male whose Daughter reports he was hospitalized in March with severe aspiration pneumonia and Fever, he required ICU care and she said they had to give him up to 15 liters of oxygen. Per notes he also had mario esophagitis. Since then he has been at [facility] nursing [facility]. It is reported that he was sitting on the bed when he dropped his pen and when he reached to cook pickled meat he fell landing on his left hip. The staff found him lying on the floor on left side complaining of left hip pain. He was seen at [facility] emergency department and transferred here for admission. Upon arrival he was noted to be febrile and is requiring 6 L of oxygen. Daughter notes he has still continued to have a chronic cough at the rehabilitation facility, he was treated with Doxycycline on May 16, and apparently also Tamiflu. Daughter thinks his influenza test was positive but rehab notes say he was treated in spite of a negative test. The patient was admitted to the hospital service for further evaluation and treatment. Hospital Course According to Dr. Horton The patient's daughter reported that the patient was hospitalized in March with severe aspiration pneumonia and Fever, he required ICU care and she said they had to give him up to 15 liters of oxygen. Per notes he also had mario esophagitis. Since then he has been at [facility] nursing facility. H was doing so well he was soon to graduate and go back to his assisted living facility. It is reported that he was sitting on the bed when he dropped his pen and when he reached to cook pickled meat he fell landing on his left hip. The staff found him lying on the floor on left side complaining of left hip pain. He was seen at [facility] emergency department and transferred here for admission. Upon arrival he was noted to be febrile and is requiring 6 L of oxygen. Daughter notes he has still continued to have a chronic cough at the rehabilitation facility, he was treated with doxycycline on May 16, and apparently also Tamiflu. Daughter thinks his influenza test was positive but rehab notes say he was treated in spite of a negative test. # The patient suffered a left femoral neck fracture after a ground-level fall - The patient was taken to the operating room today by Dr. Moshe Jett and his findings were as follows: "Left hip minimally displaced mid femoral neck fracture satisfactorily pinned in situ with 3 Synthes partially threaded 7.3 mm cannulated screws. Intraoperative fluoroscopic views confirmed no intra-articular penetration from our placed hardware and no further displacement of the femoral neck fracture". # Fever present on admission, resolved, due to Recurrent Aspiration Pneumonia - We obtained serial chest x-rays and it appears that the x-rays are lagging behind the patient's clinical response. As the patient is less hypoxemic, he is afebrile, he is asymptomatic and the chest x-ray is lagging behind his response. - We checked blood cultures which are negative at 5 days, and urinalysis is unremarkable - We continued Unasyn until discharge and will switch to Augmentin 875 mg by mouth twice a day for 5 days to complete a 10 day course of antibiotic therapy. - The modified barium swallow showed laryngeal penetration and patient has been placed on the appropriate diet by speech therapy. # Hypoxia likely secondary to above - Treat probable pneumonia as noted above - Oxygen therapy as needed - Resume CPAP at night which he had been on in the recent past - Continue Spiriva - As needed albuterol nebulizer - We will check repeat chest x-ray in a.m. # Dysphagia - Patient is to go back on dysphagia diet with thickened liquids - Speech therapy evaluation appreciated - Modified barium swallow confirms suspicion of laryngeal penetration # Chronic atrial fibrillation, now with some increased ventricular response - Most likely due to fever - We will give IV fluid and if does not improve consider medication for rate control - Since Xarelto is being held for hip surgery patient will need to have Xarelto restarted postoperatively at the discretion of orthopedic surgery - Patient has not had an echocardiogram since 2011. Therefore, we ordered an echocardiogram. # INR of 1.9 at [facility] ED and now normal here at the time of this admission. Patient was restarted on Xarelto postoperatively and will be continued on this medication at the rehabilitation center. # Recent thrush treated at [facility]. - As patient has been placed on broad-spectrum IV antibiotics we will restart empiric treatment with Diflucan. - We have changed Diflucan from IV to by mouth postoperatively and will continue. Disposition: The patient will likely be transferred back to rehabilitation today. Exam Vital Signs (Last) Date Time Temp Pulse Resp B/P Pulse Ox O2 Delivery O2 Flow Rate FiO2 06/13/16 13:53 35.9 91 18 115/67 94 Nasal Cannula 1.00 Exam General: Patient is in no apparent distress on 1 L of oxygen per nasal cannula with an O2 sat of 92%. He remains in very good spirits postoperatively. HEENT: Head is atraumatic and normocephalic. Patient has normal male pattern baldness. Eyes: Pupils are equally round and reactive to light and accommodation. Extraocular muscles are intact. Sclera are white, anicteric. Subconjunctival mucosa is pink. Ears and nose are unremarkable. Oropharynx: There is no mucosal lesions, there is no thrush, there is no pharyngitis. Oral mucosa slightly dry. Neck: Is supple, there are no nodes, or masses or tenderness. Chest: Breath sounds are slightly clearer. Heart: Rate, rhythm is regular. There is no new murmur, rub or gallop. Abdomen: Good bowel sounds are present. Abdomen is soft, nontender, no organomegaly or masses were appreciated. Extremities: Are well perfused. The left lower extremities roughly 2-3 inches shorter than the right lower extremity. There is no edema, there is no cellulitis, no rash. The left hip dressing is clean dry and intact. Neurologic: There are no focal neurological deficits. Cranial nerves II through XII are intact. There are no sensory or motor deficits. Psychiatric: Patients mood is calm and he shows no sign of agitation. Genital: Deferred Rectal: Deferred Test 06/08/16 18:00 06/09/16 03:49 06/12/16 05:10 06/13/16 05:36 Hold Khanna Top Tube Received (Received) Urine Color Dark yellow (YELLOW) Urine Appearance Hazy (CLEAR,HAZY) Urine pH 5.0 (5.0-8.0) Urine Specific [place] 1.030 (1.003-1.035) Urine Protein Negativemg/dL (NEG,TRACE) Urine Glucose (UA) Negativemg/dL (NEGATIVE) Urine Ketones Negativemg/dL (NEGATIVE) Urine Occult Blood Negative (NEGATIVE) Urine Nitrite Negative (NEGATIVE) Urine Bilirubin Negative (NEGATIVE) Urine Urobilinogen Normalmg/dL (NORMAL) Urine Leukocyte Esterase Negative (NEGATIVE) Urine RBC 0-2/hpf (0-2) Urine WBC 0-5/hpf (0-5) Urine Epithelial Cells Occasional/hpf (NONE-MOD) Urine Crystals None seen (NONE SEEN) Urine Bacteria Few/hpf (NONE-FEW) Urine Hyaline Casts Occasional/lpf (NONE) Urine Granular Casts None seen (NONE SEEN) Urine Waxy Casts None seen (NONE SEEN) Urine Red Blood Cell Casts None seen (NONE SEEN) Urine White Blood Cell Casts None seen (NONE SEEN) Urine Mucus Present (None Seen) Urine Trichomonas None seen (NONE SEEN) Urine Yeast None (NONE SEEN) Urinalysis Comment None Urine Culture Reflexed Not indicated Phosphorus Level 2.5mg/dL (2.5-4.9) Prealbumin 8mg/dL (20-40) White Blood Count 9.3th/mm3 (3.8-10.1) Red Blood Count 3.34mil/mm3 (4.40-5.80) Hemoglobin 10.2g/dL (13.8-17.2) Hematocrit 31.4% (41.0-50.0) Mean Corpuscular Volume 94.0fL (81-100) Mean Corpuscular Hemoglobin 30.5pg (27.0-35.0) Mean Corpuscular Hemoglobin Concent 32.5% (32.0-37.0) Red Cell Distribution Width 14.4% (12.3-15.4) Platelet Count 282bil/L (150-400) Neutrophils (%) (Auto) 68.9% (40-74) Lymphocytes (%) (Auto) 14.3% (14-46) Monocytes (%) (Auto) 10.0% (4-12) Eosinophils (%) (Auto) 5.7% (0-5) Basophils (%) (Auto) 0.2% (0-3) Prothrombin Time 12.2sec (8.1-12.5) Prothromb Time International Ratio 1.14ratio Sodium Level 137mEq/L (134-144) Potassium Level 4.2mEq/L (3.5-5.2) Chloride Level 98mEq/L (97-108) Carbon Dioxide Level 29mmol/L (18-29) Blood Urea Nitrogen 11mg/dL (8-27) Creatinine 0.62mg/dL (0.76-1.27) Estimat Glomerular Filtration Rate 130mL/min (>59) Glucose Level 102mg/dL (60-99) Calcium Level 8.4mg/dL (8.5-10.1) Magnesium Level 1.4mg/dL (1.6-2.6) Total Bilirubin 0.3mg/dL (0.0-1.2) Aspartate Amino Transf (AST/SGOT) 16U/L (0-50) Alanine Aminotransferase (ALT/SGPT) 12U/L (0-44) Alkaline Phosphatase 89U/L (25-160) Total Protein 5.5g/dL (6.4-8.4) Albumin 2.4g/dL (3.4-5.0) Microbiology Results Blood cultures are pending Discharge Medications Discharge Medications Amoxicillin/Clav K 875-125 mg (Augmentin 875-125 mg) 1 Each Tablet 1 TABLET PO BID Prescribed by: MARIA SIDDIQUI MD Cetirizine HCl (Zyrtec) 10 Mg Capsule 10 MG PO DAILY (Reported) Cholecalciferol (Vitamin D3) (Vitamin D3) 2,000 Unit Tablet 2,000 UNIT PO DAILY (Reported) Donepezil (Donepezil) 5 Mg Tablet 5 MG PO DAILY (Reported) Fluticasone Propionate (Flonase Allergy Relief) 50 Mcg/Actuation [place].susp 2 SPRAYS NS DAILY (Reported) Gabapentin (Gabapentin) 100 Mg Capsule 100 MG PO TID (Reported) Guaifenesin (Guaifenesin ER) 600 Mg Tab.er.12h 600 MG PO BID (Reported) Levothyroxine Sodium (Levo-T) 75 Mcg Tablet 75 MG PO DAILY (Reported) Multivitamin (Multivitamins) 1 Each Capsule 1 EACH PO DAILY (Reported) Omeprazole (Omeprazole) 20 Mg Capsule.dr 20 MG PO DAILY (Reported) Primidone (Primidone) 50 Mg Tablet 75 MG PO TID (Reported) Rivaroxaban (Xarelto) 20 Mg Tablet 20 MG PO DAILY (Reported) Simvastatin (Simvastatin) 20 Mg Tablet 20 MG PO DAILY (Reported) Tiotropium [place] (Spiriva) 18 Mcg Cap.w.dev 1 CAPSULE INHALATION DAILY ( Reported) Venlafaxine (Venlafaxine) 75 Mg Tablet 75 MG PO DAILY (Reported) As needed ([Acetaminophen]) 325 MG TABLET 650 MG PO Q4H PRN PRN For Pain Prescribed by: MARIA SIDDIQUI MD Acetaminophen (Acetaminophen) 325 Mg Tablet 1-2 EACH PO Q4H PRN PRN For Pain ( Reported) Acidophilus/Pectin, [place] (Acidophilus [place]) 1 Each Tablet 1 EACH PO BID PRN PRN when on antibiotics (Reported) Albuterol Neb Soln (Albuterol Neb Soln) 0.63 Mg/3 Ml Vial.neb 0.63 MG INHALATION QID PRN PRN For Cough (Reported) Bisacodyl (Dulcolax) 5 Mg Tablet.dr 5-10 MG PO DAILY PRN PRN For Constipation ( Reported) PER BOWEL PROTOCOL Bisacodyl (Dulcolax Rectal) 10 Mg Supp.rect 10 MG RC DAILY PRN PRN For Constipation (Reported) PER BOWEL PROTOCOL Hydrocodone-Acetaminophen 5-325 mg (Hydrocodone-Acetaminophen 5-325 mg) 1 Each Tablet 1-2 TABLET PO Q4H PRN PRN For Moderate Pain Prescribed by: MARIA SIDDIQUI MD Magnesium Hydroxide (Milk of Magnesia) 400 Mg/5 Ml Oral.susp 30 ML PO DAILY PRN PRN For Constipation (Reported) PER BOWEL PROTOCOL Na Phos,M-B/Na Phos,Di-Ba (Fleet Enema) 133 Ml Enema 133 ML RC DAILY PRN PRN For Constipation (Reported) PER BOWEL PROTOCOL Nystatin (Nystatin) 100,000 Unit/1 Ml Oral.susp 5 ML PO TID PRN PRN oral thrush (Reported) Tetrahyd/Zn/Peg 400/Hyprom/Gly (Visine Totality Eye Drops) 15 Ml Drops 2 DROP BOTH_EYES QID PRN PRN For Eye Irritation (Reported) Triamcinolone Acet (Triamcinolone Acetonide Cream) 1 Applic/0.25 Gm Cr 1 APPLIC EXT TID PRN PRN rash (Reported) apply to back prn Followup Plan Disposition: Patient is being discharged to [facility] in [place]. Discharge Diet: Heart Healthy Discharge Activity: Other (No weight bearing left lower extremity for six weeks ) Follow-up Provider: Angel Stock MD Follow-up with PCP in: 1 week Provider: Moshe Jett MD Follow-up in: 1 week (For Orthopedic follow up) Time spent Time spent on discharging this patient was greater than 35 minutes, over half of which was involved in counseling and coordination of care. Willi Siddiqui MD Jun 13, 2016 23:20
== END 2016-06-13 15:15 | DRG 480 ==
LOC: OSC 15:59
PROVIDERS: ADMIT Internal Medicine; ATTEND Internal Medicine
PROC: 0QS734Z Reposition Left Upper Femur with Internal Fixation Device, Percutaneous Approach (ICD-10-PCS; principal; 2016-06-10 09:30)
DX: S72.002A Fracture of unspecified part of neck of left femur, initial encounter for closed fracture (principal); J69.0 Pneumonitis due to inhalation of food and vomit; I48.2 Chronic atrial fibrillation; Z79.01 Long term (current) use of anticoagulants; G47.33 Obstructive sleep apnea (adult) (pediatric); J44.9 Chronic obstructive pulmonary disease, unspecified; I25.10 Atherosclerotic heart disease of native coronary artery without angina pectoris; F03.90 Unspecified dementia, unspecified severity, without behavioral disturbance, psychotic disturbance, mood disturbance, and anxiety; E78.5 Hyperlipidemia, unspecified; E03.9 Hypothyroidism, unspecified; R13.10 Dysphagia, unspecified; I10 Essential (primary) hypertension; K21.9 Gastro-esophageal reflux disease without esophagitis; W18.39XA Other fall on same level, initial encounter; Y92.129 Unspecified place in nursing home as the place of occurrence of the external cause; R09.02 Hypoxemia